=== PATIENT | male | born 1945 | race Caucasian/White ===

== ENCOUNTER → 2016-06-03 | Outpatient (CLI) | payer MEDICARE ==
[2016-06-03 07:58] LABS: Blood Urea Nitrogen 17 mg/dL (9-20); Non-African American GFR(MDRD) >60 (>60 ml/min/1.73 sqM)
--- NOTE | 2016-06-03 09:06 | CT ---
EXAMINATION TYPE: CT chest w con DATE OF EXAM: 06/03/2016 8:56 AM COMPARISON: October 03, 2014 HISTORY: SPN CT DLP: 1048.40 mGycm Automated exposure control for dose reduction was used. CONTRAST: CT scan of the chest is performed with IV Contrast, patient injected with 100 ml mL of Omnipaque 300 . FINDINGS: LUNGS: Stable nodular pleural parenchymal scar right mid lung zone extending to the right lower lobe with mild associated pleural calcification. The lungs are otherwise clear. No evidence for nodule or mass. Mild COPD changes. MEDIASTINUM: Essentially stable low attenuating lesion anterior mediastinum measuring 1.4 cm versus 1 .6 cm previously may reflect a small lymph node or small pericardial cyst. Thoracic aorta is of saurabh l caliber. The heart is mildly enlarged. Mild coronary artery calcifications are seen. UPPER ABDOMEN: No significant abnormality appreciated. OTHER: Small sliding-type hiatal hernia. Degenerative change thoracic spine. IMPRESSION: 1. Stable pleural parenchymal scarring right lung. 2. Mild COPD. 3. 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 4. Small hiatal hernia.
== END | disposition home or self-care (01) ==
LOC: RADCTMAIN 07:17
PROVIDERS: ATTEND Family Medicine
DX: J44.9 Chronic obstructive pulmonary disease, unspecified (principal); J98.4 Other disorders of lung; Z13.9 Encounter for screening, unspecified
CPT/HCPCS: 82565; 84520; 71260; 36415; Q9967

== ENCOUNTER 2016-10-29 06:33 | Day surgery (SDC) | payer MEDICARE ==
[2016-10-23 10:11] VITALS: BMI 59.3
[~2016-10-29 06:33] MED LIST: ALPRAZolam 0.25 MG TAB PO PRN; ALPRAZolam 0.5 MG TAB PO PRN; ASPIRIN 325 MG TAB PO STA; ATORVASTATIN 80 MG TAB PO STA; NITROGLYCERIN SL TABS 0.4 MG TAB SUBLINGUAL PRN; SODIUM CHLORIDE 0.9% 1,000 ML in EMPTY BAG 1 BAG IV ONE
[2016-10-29 07:23] LABS: Basophils % (A) 1 %; CH 31.1; CHCM 34.8; Eosinophils # (A) 0.4 k/uL (0-0.7); Eosinophils % (A) 6 %; HCT 41.8 % (39.0-53.0); HDW 2.67; HGB 13.9 gm/dL (13.0-17.5); Luc # (Auto) 0.14; Luc % (Auto) 3; Lymphocytes # (A) 1.1 k/uL (1.0-4.8); Lymphocytes % (A) 20 %; MCHC 33.3 g/dL (31.0-37.0); MCV 89.9 fL (80.0-100.0); Monocytes # (A) 0.4 k/uL (0-1.0); Monocytes % (A) 7 %; Neutrophils # (A) 3.6 k/uL (1.3-7.7); Neutrophils % (A) 64 %; RBC 4.65 m/uL (4.30-5.90); RDW 13.9 % (11.5-15.5); WBC 5.6 k/uL (3.8-10.6); WBC (Perox) 5.98
[2016-10-29] MEDS ORDERED: fentaNYL (PF) 50 MCG/ML 2 ML AMP ONE (07:24)
[2016-10-29] MEDS ORDERED: diphenhydrAMINE 50 MG/ML 1 ML VIAL ONE (07:24)
[2016-10-29] MEDS ORDERED: LIDOCAINE 2% INJ 20 MG/ML (20 ML MDV) ONE (07:24)
[2016-10-29] MEDS ORDERED: VERAPAMIL 2.5 MG/ML 2 ML AMP ONE (07:25)
[2016-10-29 07:36] LABS: Anion Gap 10 mmol/L; Blood Urea Nitrogen 19 mg/dL (9-20); Calcium 9.3 mg/dL (8.4-10.2); Carbon Dioxide 22 mmol/L (22-30); Chloride 110 mmol/L (98-107); Glucose 99 mg/dL (74-99); Non-African American GFR(MDRD) >60 (>60 ml/min/1.73 sqM); Potassium 4.2 mmol/L (3.5-5.1); Sodium 142 mmol/L (137-145)
[2016-10-29] MEDS ORDERED: diphenhydrAMINE 50 MG/ML 1 ML VIAL IVP ONE (07:41)
[2016-10-29] MEDS ORDERED: fentaNYL (PF) 50 MCG/ML 2 ML AMP IV ONE (07:41)
[2016-10-29] MEDS ORDERED: HEPARIN SODIUM 1,000 UN/ML (10ML VL) ONE (07:42)
[2016-10-29] MEDS ORDERED: LIDOCAINE 2% INJ 20 MG/ML SQ ONE (07:43)
[2016-10-29] MEDS ORDERED: VERAPAMIL SYRINGE (5 MG/10 ML) INTRAARTER ONE (07:45)
[2016-10-29] MEDS ORDERED: HEPARIN SODIUM 1,000 UN/ML (10ML VL) IV ONE (07:57)
[2016-10-29] MEDS ORDERED: IOHEXOL 350 MG/ML 125ML BOTTLE INJ ONE (08:28)
[2016-10-29] MEDS ORDERED: NON-FORMULARY DRUG (Ipratropium/Albuterol Sulfate [Combivent Respimat Inhaler] 2 PUFF) INHALATION PRN (08:46)
[2016-10-29] MEDS ORDERED: traMADol 50 MG TAB PO PRN (08:46)
[2016-10-29] MEDS ORDERED: RX INFO: IV CONTRAST WAS GIVEN 1 EACH MISC MISCELLANE PRN (08:46)
[2016-10-29] MEDS ORDERED: SODIUM CHLORIDE 0.9% 1,000 ML IV SCH (09:00)
[2016-10-29] MEDS ORDERED: SALMETEROL IH SCH (09:00)
[2016-10-29] MEDS ORDERED: ASPIRIN 81 MG PO SCH (09:00)
[2016-10-29] MEDS ORDERED: OLMESARTAN 40 MG PO SCH (09:00)
[2016-10-29] MEDS ORDERED: FLUTICASONE IH SCH (09:00)
[2016-10-29] MEDS ORDERED: FINASTERIDE 5 MG TAB PO SCH (09:00)
[2016-10-29] MEDS ORDERED: ATORVASTATIN 40 MG TAB PO SCH (09:00)
[2016-10-29] MEDS ORDERED: TAMSULOSIN 0.4 MG CAP.ER.24H PO SCH (09:00)
[2016-10-29 09:01] VITALS: TEMP 98.2
[2016-10-29 10:46] VITALS: RESP 16
--- NOTE | 2016-10-29 12:12 | CC ---
CARDIAC CATHETERIZATION REPORT Mr. Salmeron is a 71-year-old male with a known history of hypertension who has been complaining of dyspnea on exertion; underwent a myocardial perfusion imaging that revealed inferior wall defect with ejection fraction of 48%. In view of that, recommendation regarding cardiac catheterization, the procedure as well as the risks, and complications were discussed with the patient in full understanding and agreement. The patient was brought to the dental laboratory manager in a fasting state after receiving fentanyl and Benadryl and achieving moderate conscious sedative state. He was draped and prepped in conventional fashion. Using Xylocaine anesthesia in the Seldinger technique, 6-Scottish sheath was introduced in the right radial artery. Attempt to cannulate the right coronary artery using a 5-Scottish 3-1/2 bend and left coronary artery using 5-Scottish 3- 1/2 Bend Alfonzo catheter were unsuccessful because severe tortuosity in the subclavian segment. At that time, a 5-Scottish 4 bend right Alfonzo catheter introduced in the system and images of the coronary artery were performed. Following that, the 6-Scottish Browning 2 catheter was introduced and images of the left coronary system were obtained with difficulties. The aortic valve was crossed using the right Alfonzo catheter and pressures were calculated. Following that catheter and sheaths were removed. Hemostasis was obtained with deployment of a TR band. There was no immediate complication. Patient was returned to his room in stable condition. Of note, the patient received 5000 units of intravenous heparin as well as intra-arterial verapamil. FINDINGS: FLUOROSCOPY: There was calcification formed in the right coronary artery, left main and the proximal left anterior descending artery. LEFT MAIN: This is a short size vessel, bifurcating into the left circumflex and left anterior descending artery. Left main coronary artery is without any significant coronary artery disease. LEFT ANTERIOR DESCENDING ARTERY: This is a large-sized vessel reaching toward the apex giving rise to a large diagonal branch calcified in the proximal segment. The left anterior descending artery in the proximal and mid segment has intimal disease of 20% to 30% without any evidence of high-grade stenosis. LEFT CIRCUMFLEX: This is a large nondominant vessel giving rise to 4 obtuse marginal branches. The first 3 are the largest in caliber. The left circumflex in the proximal segment has 20% to 30% without any evidence of high-grade stenosis. RIGHT CORONARY ARTERY: This is a large dominant vessel, bifurcating distally PDA, posterolateral segment and branches. The right coronary artery is calcified. In the mid and proximal segment, it has 2 plaques of 40% to 50% without any evidence of high- grade stenosis. The rest of the vessel has no high-degree stenosis. LEFT VENTRICULOGRAM: Left ventriculogram is not performed. HEMODYNAMICS: There was no gradient across the aortic valve. The left ventricle end- diastolic pressure was 16 to 18 mmHg. CONCLUSION: 1. Calcified coronary arteries. 2. Mild to moderate triple-vessel coronary artery disease. RECOMMENDATION: In view of finding anatomy, I recommend to continue medical therapy with aggressive coronary risk modifications that has been initiated. Those findings and recommendation were discussed with the patient and his family and in full understanding and agreement. Duration of the procedure 50 minutes. MMODL / IJN: [id number] /
--- NOTE | 2016-10-29 12:18 | LTR ---
Date: October 29, 2016 Jigar Gilman, DO Re: Manny Salmeron Dear Dr. Gilman: I had the opportunity to perform cardiac catheterization on Mr. Salmeron at [facility] on the 29 of October and a full copy of the procedure note will be forwarded to you. In brief, he was found to have calcified coronary artery with mild to moderate triple-vessel coronary artery disease and based on those findings, I recommend continued medical therapy with aggressive coronary risk modifications that has been initiated. Thank you again for allowing me the opportunity to participate in his care. Please feel free to call for any questions. Sincerely yours, MD LIANNA Francis / BRIGITTEN: [id number] /
[2016-10-29 13:31] VITALS: BP 147/76; PULSE 79
== END 2016-10-29 14:08 | disposition home or self-care (01) ==
LOC: CATHCVL 06:33
PROVIDERS: ATTEND Internal Medicine Interventional Cardiology
DX: I25.10 Atherosclerotic heart disease of native coronary artery without angina pectoris (principal); I10 Essential (primary) hypertension; G47.33 Obstructive sleep apnea (adult) (pediatric); E66.9 Obesity, unspecified; Z86.711 Personal history of pulmonary embolism; Z68.43 Body mass index [BMI] 50.0-59.9, adult; Z79.82 Long term (current) use of aspirin; Z79.01 Long term (current) use of anticoagulants; Z79.899 Other long term (current) drug therapy
CPT/HCPCS: 93458; 80048; 85025; 99152; 99153; C1894 ×2; C1769 ×2; J2001; J1200; J3010; J1644; Q9967

== ENCOUNTER → 2019-04-28 | Day surgery (SDC) | payer MEDICARE ==
[2019-04-25 13:23] VITALS: BMI 41.2
[~2019-04-28] MED LIST changes: -ALPRAZolam 0.25 MG TAB PO PRN; -ALPRAZolam 0.5 MG TAB PO PRN; -ASPIRIN 325 MG TAB PO STA; -ATORVASTATIN 80 MG TAB PO STA; +LACTATED RINGERS 1,000 ML IV SCH; +LIDOCAINE 1% (10MG/ML) FOR IV START INTRADERMA PRN; -NITROGLYCERIN SL TABS 0.4 MG TAB SUBLINGUAL PRN; +PROPOFOL 10 MG/ML 20 ML VIAL IV ONE; -SODIUM CHLORIDE 0.9% 1,000 ML in EMPTY BAG 1 BAG IV ONE
[2019-04-28 08:09] VITALS: TEMP 97
--- NOTE | 2019-04-28 10:12 | P.GSHP ---
History of Present Illness H&P Date: 04/28/19 CHIEF COMPLAINT: Colon screen HISTORY OF PRESENT ILLNESS: The patient is a 73-year-old male who presents for colon screen. Lower endoscopy was offered for further evaluation and management. PAST MEDICAL HISTORY: Please see list. PAST SURGICAL HISTORY: Please see list. MEDICATIONS: Please see list. ALLERGIES: Please see list. SOCIAL HISTORY: No illicit drug use FAMILY HISTORY: No reports of Crohn disease or ulcerative colitis. REVIEW OF ORGAN SYSTEMS: CONSTITUTIONAL: No reports of fevers or chills. PHYSICAL EXAM: VITAL SIGNS: Stable GENERAL: Well-developed pleasant in no acute distress. HEENT: No scleral icterus. Extraocular movements grossly intact. Moist buccal mucosa. NECK: Supple without lymphadenopathy. CHEST: Unlabored respirations. Equal bilateral excursions. CARDIOVASCULAR: Regular rate and rhythm. Distal 2+ pulses. ABDOMEN: Soft, nontender, nondistended. MUSCULOSKELETAL: No clubbing, cyanosis, or edema. ASSESSMENT: 1. Colon screen. PLAN: 1. Recommend proceeding with a lower endoscopy Past Medical History Past Medical History: COPD, GERD/Reflux, Hearing Disorder / Deafness, Hypertension, Osteoarthritis (OA), Pneumonia, Pulmonary Embolus (PE) Additional Past Medical History / Comment(s): UTI, POLYPS History of Any Multi-Drug Resistant Organisms: None Reported Past Surgical History: Appendectomy, Cholecystectomy Additional Past Surgical History / Comment(s): COLONOSCOPY W/POLYPECTOMY-BENIGN POLYPS,BONE TAKEN FROM RT HIP AND INSERTED INTO RT ANKLE Past Anesthesia/Blood Transfusion Reactions: No Reported Reaction Additional Past Anesthesia/Blood Transfusion Reaction / Comment(s): had ruptured appendix in 70's-"almost lost him" per spouse, unsure if due to anesthesia or the ruptured appy. Past Psychological History: No Psychological Hx Reported Additional Psychological History / Comment(s): . Smoking Status: Former smoker Past Alcohol Use History: Occasional Additional Past Alcohol Use History / Comment(s): SMOKED FOR 25 YEARS- UP TO 2 PPD, QUIT IN 1987. Past Drug Use History: None Reported - Past Family History Son(s) Family Medical History: Deep Vein Thrombosis (DVT) Father Family Medical History: Cancer, Dementia Additional Family Medical History / Comment(s): HAD COLON CANCER AND WAS TX SUCCESSFULLY THEN GOT LUNG CANCER/ Mother Family Medical History: Hypertension, Rheumatoid Arthritis (RA) Additional Family Medical History / Comment(s): STILL ALIVE LIVES AT [facility] Medications and Allergies Home Medications Medication Instructions Recorded Confirmed Type Finasteride [Proscar] 5 mg PO DAILY 10/03/14 04/25/19 History Tamsulosin [Flomax] 0.4 mg PO DAILY 10/03/14 04/25/19 History traMADol HCL [Ultram] 50 mg PO Q6H PRN 10/03/14 04/25/19 History Aspirin [Adult Low Dose Aspirin EC] 81 mg PO DAILY 10/23/16 04/25/19 History Atorvastatin [Lipitor] 40 mg PO DAILY #90 tab 10/29/16 04/25/19 Rx Mometasone/Formoterol [Dulera 200 2 puff INHALATION BID 04/25/19 04/25/19 History Mcg/5 Mcg Inhaler] Olmesartan/Hydrochlorothiazide 1 each PO DAILY 04/25/19 04/25/19 History [Benicar Hct 40-25 mg Tablet] Allergies Allergy/AdvReac Type Severity Reaction Status Date / Time No Known Allergies Allergy Verified 04/25/19 13:08 Surgical - Exam Vital Signs Temp Pulse Resp BP Pulse Ox 97 F L 85 20 127/72 94 L 04/28/19 08:00 04/28/19 08:00 04/28/19 08:00 04/28/19 08:00 04/28/19 08:00
[2019-04-28 10:36] VITALS: BP 121/63; PULSE 66; RESP 18
--- NOTE | 2019-04-28 15:52 | P.PCN ---
Date of Procedure: 04/28/19 Description of Procedure: PREOPERATIVE DIAGNOSIS: Family history of colon cancer, father Personal history of colon polyps Colon cancer screening, high risk POSTOPERATIVE DIAGNOSIS: Family history of colon cancer, father Personal history of colon polyps Colon cancer screening, high risk Tubular adenoma descending colon Tubular adenoma transverse colon Sigmoid diverticulosis Internal hemorrhoids, grade 2 OPERATION: Colonoscopy to the ileocecal valve and appendiceal orifice. Colonoscopy with multiple hot snare polypectomies Colonoscopy with cold forceps biopsies SURGEON: So Pastor MD. ANESTHESIA: MAC. INDICATIONS: The patient is an 73-year-old male who presents with personal history of colon polyps. Last colonoscopy 5 years ago. Benefits and risks were described and informed consent was obtained. DESCRIPTION OF PROCEDURE: The patient had undergone Suprep. He had been brought into the operating room and laid in the left lateral decubitus position. After adequate intravenous sedation, the rectum was examined with 2% lidocaine jelly. The prostate fossa was unremarkable. No external hemorrhoids were encountered. The rectal tone was within normal limits. No lesions were palpated in the rectal vault. An Olympus colonoscope was advanced to the ileocecal valve with clear view. The prep was good. Sigmoid diverticulosis was encountered. Multiple colonic polyps were found and snare polypectomy or removed with cold forceps. No evidence of focal colitis was found. Retroflexion of the scope demonstrated grade 2 internal hemorrhoids without active bleeding or inflammation. The colon was desufflated. The patient had tolerated the procedure well. Withdrawal time was over 6 minutes. FINDINGS: Aronchick preparation quality scale 2 (1-5) Internal hemorrhoids, grade 2 No external hemorrhoids No arteriovenous malformations. Sigmoid diverticulosis, moderate to severe Removal of 16 polyps: - Snare polypectomy 30 cm from the anal verge, 10 mm flat villous adenoma polyp, descending colon - Snare polypectomy 60 cm from the anal verge, 8 mm flat villous adenoma polyp, descending colon - Cold forceps biopsy at 60 cm from the anal verge descending colon 3, 3 to 5 mm polyp - Cold forceps biopsy at 55 cm from the anal verge, 4 mm polyp, descending colon - Cold forceps biopsy at distal transverse colon 3, 4 to 5 mm polyp - Cold forceps biopsy at mid transverse colon, 4 mm polyp - Cold forceps biopsy at proximal transverse colon polyp x 2, 4 to 5 mm polyp - Cold forceps biopsy at hepatic flexure 5 mm polyp - Cold forceps biopsy at ascending colon x 3, 3 to 4 mm polyp polyps. No focal colitis. RECOMMENDATIONS: Given severity of tubular adenomas, recommend repeat colonoscopy year2020 Plan - Discharge Summary Discharge Rx Participant: No New Discharge Prescriptions: Continue Tamsulosin [Flomax] 0.4 mg PO DAILY Finasteride [Proscar] 5 mg PO DAILY traMADol HCL [Ultram] 50 mg PO Q6H PRN PRN Reason: Pain Aspirin [Adult Low Dose Aspirin EC] 81 mg PO DAILY Atorvastatin [Lipitor] 40 mg PO DAILY #90 tab Olmesartan/Hydrochlorothiazide [Benicar Hct 40-25 mg Tablet] 1 each PO DAILY Mometasone/Formoterol [Dulera 200 Mcg/5 Mcg Inhaler] 2 puff INHALATION BID Discharge Medication List Finasteride [Proscar] 5 mg PO DAILY 10/03/14 [History] Tamsulosin [Flomax] 0.4 mg PO DAILY 10/03/14 [History] traMADol HCL [Ultram] 50 mg PO Q6H PRN 10/03/14 [History] Aspirin [Adult Low Dose Aspirin EC] 81 mg PO DAILY 10/23/16 [History] Atorvastatin [Lipitor] 40 mg PO DAILY #90 tab 10/29/16 [Rx] Mometasone/Formoterol [Dulera 200 Mcg/5 Mcg Inhaler] 2 puff INHALATION BID 04/25/19 [History] Olmesartan/Hydrochlorothiazide [Benicar Hct 40-25 mg Tablet] 1 each PO DAILY 04/25/19 [History] Follow up Appointment(s)/Referral(s): So Pastor MD [STAFF PHYSICIAN] - 05/12/19 9:40 am Patient Instructions/Handouts: *Surgery [facility] - (Anesthesia) Endoscopy Discharge Instructions, Diverticulosis (DC), Colorectal Polyps (DC), Diverticulosis Diet (GEN), Colonoscopy (DC) Activity/Diet/Wound Care/Special Instructions: Repeat colonoscopy one year2020 Discharge Disposition: HOME SELF-CARE
== END | disposition home or self-care (01) ==
LOC: ORWHC2ENDO 07:41
PROVIDERS: ATTEND Surgery Plastic and Reconstructive Surgery
DX: Z12.11 Encounter for screening for malignant neoplasm of colon (principal); D12.6 Benign neoplasm of colon, unspecified; D12.2 Benign neoplasm of ascending colon; D12.3 Benign neoplasm of transverse colon; K63.5 Polyp of colon; K57.30 Diverticulosis of large intestine without perforation or abscess without bleeding; K64.1 Second degree hemorrhoids; Z86.010 Personal history of colon polyps; Z80.0 Family history of malignant neoplasm of digestive organs; J44.9 Chronic obstructive pulmonary disease, unspecified; K21.9 Gastro-esophageal reflux disease without esophagitis; H91.90 Unspecified hearing loss, unspecified ear; I10 Essential (primary) hypertension; M19.90 Unspecified osteoarthritis, unspecified site; E78.5 Hyperlipidemia, unspecified; Z87.01 Personal history of pneumonia (recurrent); Z86.711 Personal history of pulmonary embolism; Z87.440 Personal history of urinary (tract) infections; Z90.49 Acquired absence of other specified parts of digestive tract; Z98.890 Other specified postprocedural states; Z87.891 Personal history of nicotine dependence; Z79.899 Other long term (current) drug therapy; Z79.891 Long term (current) use of opiate analgesic; Z79.82 Long term (current) use of aspirin; Z79.51 Long term (current) use of inhaled steroids; Z82.49 Family history of ischemic heart disease and other diseases of the circulatory system; Z80.1 Family history of malignant neoplasm of trachea, bronchus and lung; Z81.8 Family history of other mental and behavioral disorders; Z82.61 Family history of arthritis
CPT/HCPCS: 88305; 45380; 45385; J2704

== ENCOUNTER 2020-06-13 09:02 | Day surgery (SDC) | payer MEDICARE ==
[2020-06-12 09:37] VITALS: BMI 38.0
--- NOTE | 2020-06-13 07:41 | P.GSHP ---
History of Present Illness H&P Date: 06/13/20 CHIEF COMPLAINT: Colon screen HISTORY OF PRESENT ILLNESS: The patient is a 75-year-old male who presents for colon screen. Lower endoscopy was offered for further evaluation and management. PAST MEDICAL HISTORY: Please see list. PAST SURGICAL HISTORY: Please see list. MEDICATIONS: Please see list. ALLERGIES: Please see list. SOCIAL HISTORY: No illicit drug use FAMILY HISTORY: No reports of Crohn disease or ulcerative colitis. REVIEW OF ORGAN SYSTEMS: CONSTITUTIONAL: No reports of fevers or chills. PHYSICAL EXAM: VITAL SIGNS: Stable GENERAL: Well-developed pleasant in no acute distress. HEENT: No scleral icterus. Extraocular movements grossly intact. Moist buccal mucosa. NECK: Supple without lymphadenopathy. CHEST: Unlabored respirations. Equal bilateral excursions. CARDIOVASCULAR: Regular rate and rhythm. Distal 2+ pulses. ABDOMEN: Soft, nontender, nondistended. MUSCULOSKELETAL: No clubbing, cyanosis, or edema. ASSESSMENT: 1. Colon screen. PLAN: 1. Recommend proceeding with a lower endoscopy Past Medical History Past Medical History: COPD, GERD/Reflux, Hearing Disorder / Deafness, Hyperlipidemia, Hypertension, Osteoarthritis (OA), Pneumonia, Pulmonary Embolus (PE) Additional Past Medical History / Comment(s): UTI, POLYPS. History of Any Multi-Drug Resistant Organisms: None Reported Past Surgical History: Appendectomy, Cholecystectomy, Orthopedic Surgery Additional Past Surgical History / Comment(s): COLONOSCOPY W/POLYPECTOMY-BENIGN POLYPS,BONE TAKEN FROM RT HIP AND INSERTED INTO RT ANKLE Past Anesthesia/Blood Transfusion Reactions: No Reported Reaction Additional Past Anesthesia/Blood Transfusion Reaction / Comment(s): had ruptured appendix in 70's-"almost lost him" per spouse, unsure if due to anesthesia or the ruptured appy. Smoking Status: Former smoker - Past Family History Son(s) Family Medical History: Deep Vein Thrombosis (DVT) Father Family Medical History: Cancer, Dementia Additional Family Medical History / Comment(s): HAD COLON CANCER AND WAS TX SUCCESSFULLY THEN GOT LUNG CANCER/ Mother Family Medical History: Hypertension, Rheumatoid Arthritis (RA) Additional Family Medical History / Comment(s): STILL ALIVE LIVES AT [facility] Medications and Allergies Home Medications Medication Instructions Recorded Confirmed Type Finasteride [Proscar] 5 mg PO DAILY 10/03/14 06/12/20 History Tamsulosin [Flomax] 0.4 mg PO DAILY 10/03/14 06/12/20 History traMADol HCL [Ultram] 50 mg PO Q6H PRN 10/03/14 06/12/20 History Aspirin [Adult Low Dose Aspirin EC] 81 mg PO DAILY 10/23/16 06/12/20 History Atorvastatin [Lipitor] 40 mg PO DAILY #90 tab 10/29/16 06/12/20 Rx Mometasone/Formoterol [Dulera 200 2 puff INHALATION BID 04/25/19 06/12/20 History Mcg-5 Mcg Inhaler] Olmesartan/Hydrochlorothiazide 1 each PO DAILY 04/25/19 06/12/20 History [Benicar Hct 40-25 mg Tablet] Allergies Allergy/AdvReac Type Severity Reaction Status Date / Time No Known Allergies Allergy Verified 06/12/20 09:46
[~2020-06-13 09:02] MED LIST changes: -PROPOFOL 10 MG/ML 20 ML VIAL IV ONE
[2020-06-13] MEDS ORDERED: LACTATED RINGERS 1,000 ML IV ONE (09:25)
[2020-06-13 09:27] VITALS: TEMP 97.6
[2020-06-13] MEDS ORDERED: PROPOFOL 10 MG/ML 20 ML VIAL IV ONE (10:52)
--- NOTE | 2020-06-13 11:31 | P.PCN ---
Date of Procedure: 06/13/20 Description of Procedure: PREOPERATIVE DIAGNOSIS: Personal history of colon polyps Colonoscopy screening POSTOPERATIVE DIAGNOSIS: Tubular adenoma hepatic flexure Tubular adenoma transverse colon Tubular adenoma descending colon Sigmoid diverticulosis OPERATION: Colonoscopy to the ileocecal valve and appendiceal orifice, cecum Colonoscopy with hot snare polypectomy Colonoscopy with cold forceps biopsy SURGEON: So Pastor MD. ANESTHESIA: MAC. INDICATIONS: The patient is an 75-year-old male who presents personal history of colon polyps. Last colonoscopy 5 years over. Benefits and risks were described and informed consent was obtained. DESCRIPTION OF PROCEDURE: The patient had undergone Suprep. The patient had been brought into the operating room and laid in the left lateral decubitus position. After adequate intravenous sedation, the rectum was examined with 2% lidocaine jelly. The prostate was unremarkable. No external hemorrhoids were encountered. The rectal tone was within normal limits. No lesions were palpated in the rectal vault. An Olympus colonoscope was advanced until the cecum, ileocecal valve and appendiceal orifice were clearly viewed. The prep was fair. Severe sigmoid diverticulosis was encountered. Colonic polyps were found and removed. No evidence of focal colitis was found. Retroflexion of the scope demonstrated grade 1 internal hemorrhoids without active bleeding or inflammation. The colon was desufflated. The patient had tolerated the procedure well. Withdrawal time was over 6 minutes. FINDINGS: Aronchick preparation quality scale 2 (1-5) Internal hemorrhoids, grade 1 No external hemorrhoids Has arteriovenous malformation at hepatic flexure Sigmoid diverticulosis Removal of 4 polyps: - Snare polypectomy of hepatic flexure, 5 mm tubulovillous adenoma polyp. - Snare polypectomy of mid transverse colon, 8 mm flat villous adenoma polyp. - Snare polypectomy of descending colon, 6 mm flat villous adenoma polyp. - Cold forceps biopsy at descending colon, 4 mm polyp. No focal colitis. RECOMMENDATIONS: Repeat colonoscopy in 3 years, 2023 Plan - Discharge Summary Discharge Rx Participant: Yes New Discharge Prescriptions: Continue Tamsulosin [Flomax] 0.4 mg PO DAILY Finasteride [Proscar] 5 mg PO DAILY traMADol HCL [Ultram] 50 mg PO Q6H PRN PRN Reason: Pain Aspirin [Adult Low Dose Aspirin EC] 81 mg PO DAILY Atorvastatin [Lipitor] 40 mg PO DAILY #90 tab Olmesartan/Hydrochlorothiazide [Benicar Hct 40-25 mg Tablet] 1 each PO DAILY Mometasone/Formoterol [Dulera 200 Mcg-5 Mcg Inhaler] 2 puff INHALATION BID Discharge Medication List Finasteride [Proscar] 5 mg PO DAILY 10/03/14 [History] Tamsulosin [Flomax] 0.4 mg PO DAILY 10/03/14 [History] traMADol HCL [Ultram] 50 mg PO Q6H PRN 10/03/14 [History] Aspirin [Adult Low Dose Aspirin EC] 81 mg PO DAILY 10/23/16 [History] Atorvastatin [Lipitor] 40 mg PO DAILY #90 tab 10/29/16 [Rx] Mometasone/Formoterol [Dulera 200 Mcg-5 Mcg Inhaler] 2 puff INHALATION BID 04/25/19 [History] Olmesartan/Hydrochlorothiazide [Benicar Hct 40-25 mg Tablet] 1 each PO DAILY 04/25/19 [History] Follow up Appointment(s)/Referral(s): So Pastor MD [STAFF PHYSICIAN] - As Needed Patient Instructions/Handouts: Colorectal Polyps (DC), Diverticulosis Diet (GEN), Diverticulosis (DC) Activity/Diet/Wound Care/Special Instructions: Repeat colonoscopy 3 years, 2023 Discharge Disposition: HOME SELF-CARE
[2020-06-13 11:37] VITALS: RESP 16
[2020-06-13 11:43] VITALS: BP 117/82; PULSE 64
== END 2020-06-13 11:56 | disposition home or self-care (01) ==
LOC: ORWHC2ENDO 09:02
PROVIDERS: ATTEND Surgery Plastic and Reconstructive Surgery
DX: Z12.11 Encounter for screening for malignant neoplasm of colon (principal); K57.30 Diverticulosis of large intestine without perforation or abscess without bleeding; D12.3 Benign neoplasm of transverse colon; D12.4 Benign neoplasm of descending colon; K64.0 First degree hemorrhoids; J44.9 Chronic obstructive pulmonary disease, unspecified; K21.9 Gastro-esophageal reflux disease without esophagitis; E78.5 Hyperlipidemia, unspecified; I10 Essential (primary) hypertension; M19.90 Unspecified osteoarthritis, unspecified site; H91.90 Unspecified hearing loss, unspecified ear; Z86.010 Personal history of colon polyps; Z79.82 Long term (current) use of aspirin; Z79.899 Other long term (current) drug therapy; Z86.711 Personal history of pulmonary embolism; Z87.01 Personal history of pneumonia (recurrent); Z80.1 Family history of malignant neoplasm of trachea, bronchus and lung; Z80.0 Family history of malignant neoplasm of digestive organs; Z84.89 Family history of other specified conditions; Z82.49 Family history of ischemic heart disease and other diseases of the circulatory system; Z82.61 Family history of arthritis
CPT/HCPCS: 88305; 45380; 45385; J2704

== ENCOUNTER → 2020-06-27 | Outpatient (CLI) | payer MEDICARE ==
[2020-06-27 13:50] VITALS: BP 136/82; PULSE 101; RESP 16; TEMP 98.2; BMI 39.9
--- NOTE | 2020-06-27 14:15 | P.HPBAR ---
Bariatric H&P - History & Physicial H&P Date: 06/27/20 History & Physicial: Visit/CC: New to [facility]. Pt lost wt on his own. Might pursue panni. Patient initial contact: Initial weight: 206.385 kg Initial weight in pounds: 455.00 Height: 5 ft 11 in Initial BMI: 63.4 Last weight: Current weight: 129.784 kg Current weight in pounds: 286.13 Current BMI: 39.9 [place] body weight (based on NIH guidelines): 78.018 kg Excess body weight loss: 59.6% The patient is a 75 year-old M who presents for Bariatric Assessment. Highest weight 425 pounds. Lost 100 pounds. He lost weight from November 2017, for over 2 years. He has been using AD ointment for his skin infections, over 5+ years. He reports lower back pain and with chiropractor for his back. He has difficulty with grooming and wearing clothes. He is into [id number] expense. Went over recovery option. Panniculectomy packet. At least 20 pounds described. Recommend follow with heat treating bluer for panniculitis. Needs EKG and cardiac clearance. Recommend bariatric labs for nutrition. Has over 8 cm of hanging. Get pictures. He avoids carbs and eats 12 oz of steak per day. Past Medical History Past Medical History: COPD, GERD/Reflux, Hearing Disorder / Deafness, Hyperlipidemia, Hypertension, Osteoarthritis (OA), Pneumonia, Pulmonary Embolus (PE) Additional Past Medical History / Comment(s): UTI, POLYPS. History of Any Multi-Drug Resistant Organisms: None Reported Past Surgical History: Appendectomy, Cholecystectomy, Orthopedic Surgery Additional Past Surgical History / Comment(s): COLONOSCOPY W/POLYPECTOMY-BENIGN POLYPS,BONE TAKEN FROM RT HIP AND INSERTED INTO RT ANKLE Past Anesthesia/Blood Transfusion Reactions: No Reported Reaction Additional Past Anesthesia/Blood Transfusion Reaction / Comm: had ruptured appendix in 70's-"almost lost him" per spouse, unsure if due to anesthesia or the ruptured appy. Past Psychological History: No Psychological Hx Reported Additional Psychological History / Comment(s): . Smoking Status: Former smoker Past Alcohol Use History: Occasional Additional Past Alcohol Use History / Comment(s): SMOKED FOR 25 YEARS- UP TO 2 PPD, QUIT IN 1987. Past Drug Use History: None Reported - Past Family History Son(s) Family Medical History: Deep Vein Thrombosis (DVT) Father Family Medical History: Cancer, Dementia Additional Family Medical History / Comment(s): HAD COLON CANCER AND WAS TX SUCCESSFULLY THEN GOT LUNG CANCER/ Mother Family Medical History: Hypertension, Rheumatoid Arthritis (RA) Additional Family Medical History / Comment(s): STILL ALIVE LIVES [facility] Surgical - Exam Vital Signs Temp Pulse Resp BP 98.2 F 101 H 16 136/82 06/27/20 13:46 06/27/20 13:46 06/27/20 13:46 06/27/20 13:46 Bariatric Checklist Checklist: Plan: Checklist: EGD: 1. Hiatal hernia: 2. H. Pylori: HgbA1c: Vitamin D: Smoking: Former smoker Primary care physician referral: Psychiatry clearance: Cardiology clearance: Sleep study: Diet journal: VTE risk score: VTE risk level: Rehab needs at discharge:
[2020-06-27 15:30] LABS: HCT 35.8 % (39.0-53.0); HGB 12.7 gm/dL (13.0-17.5); MCH 32.1 pg (25.0-35.0); MCHC 35.5 g/dL (31.0-37.0); MCV 90.5 fL (80.0-100.0); Mean Platelet Volume 8.4; Platelet Count 215 k/uL (150-450); RBC 3.96 m/uL (4.30-5.90); WBC 8.4 k/uL (3.8-10.6)
[2020-06-27 15:42] LABS: Partial Thromboplastin Time 23.1 sec (22.0-30.0); Prothrombin Time 10.3 sec (9.0-12.0)
[2020-06-27 22:44] LABS: % Iron Saturation 22.86 (15.00-50.00); African American GFR (CKD) 68.1 (60.0-200.0); Albumin 4.2 g/dL (3.80-4.90); Albumin/Globulin Ratio 2.21 (1.60-3.17); Anion Gap 7.5 mmol/L (4.00-12.00); Calcium 9.3 mg/dL (8.7-10.3); Carbon Dioxide 27.5 mmol/L (21.6-31.8); Chol/HDL Ratio 2.23; Globulin 1.9 g/dL (1.6-3.3); LDL Cholesterol,Calculated 49.2 mg/dL (0.0-131.0); Magnesium 2.1 mg/dL (1.5-2.4); Non-African American GFR(CKD) 58.8 (60.0-200.0); Phosphorus 3.6 mg/dL (2.4-5.1); Potassium 3.7 mmol/L (3.5-5.5); Total Bilirubin 0.5 mg/dL (0.3-1.2); Total Protein 6.1 g/dL (6.2-8.2); VLDL Calculation 24.8 mg/dL (5.00-40.00)
[2020-06-27 22:54] LABS: Hemoglobin A1C 4.6 % (4.0-6.0)
[2020-06-27 23:24] LABS: Ferritin 486.5 ng/mL (22.0-322.0); Folate, Serum 12.8 ng/mL
[2020-06-28 14:09] LABS: Zinc, Serum 65 ug/dL (60-130)
[2020-06-29 09:36] LABS: Vitamin A 54 ug/dL (38-106)
[2020-06-29 14:03] LABS: Vit B1(Thiamine) 59 ug/L (38-122)
[2020-07-01 19:02] LABS: Selenium 143 mcg/L (63-160)
== END ==
LOC: BARWHC3 12:53
PROVIDERS: ATTEND Surgery Plastic and Reconstructive Surgery
DX: E66.01 Morbid (severe) obesity due to excess calories (principal); E89.1 Postprocedural hypoinsulinemia; D50.8 Other iron deficiency anemias; E44.0 Moderate protein-calorie malnutrition; E55.9 Vitamin D deficiency, unspecified; K74.1 Hepatic sclerosis; N19 Unspecified kidney failure; K50.90 Crohn's disease, unspecified, without complications; Z68.39 Body mass index [BMI] 39.0-39.9, adult; Z87.891 Personal history of nicotine dependence
CPT/HCPCS: 84255; 84134; 84425; 80061; 80053; 82607; 82728; 82525; 82746; 83540; 83550; 83735; 84100; 84443; 84590; 84630; 85027; 85610; 85730; 82306; 83970; 83036; 93005; 36415; G0463; 99203

== ENCOUNTER → 2020-09-13 | Outpatient (CLI) | payer MEDICARE ==
[2020-09-13 15:21] LABS: HCT 36.6 % (39.6-50.0); HGB 12.2 g/dL (13.0-17.0); MCH 30.3 pg (27.0-32.0); MCHC 33.3 g/dL (32.0-37.0); Mean Platelet Volume 11.5 fL (9.5-12.2); Platelet Count 219 X 10*3/uL (140-440); RBC 4.02 X 10*6/uL (4.40-5.60); RDW 12.9 % (11.5-14.5); WBC 7.03 X 10*3/uL (4.50-10.00)
== END | disposition home or self-care (01) ==
LOC: LABWHC1 10:43
PROVIDERS: ATTEND Orthopaedic Surgery
DX: M25.50 Pain in unspecified joint (principal)
CPT/HCPCS: 36415; 85027

== ENCOUNTER → 2020-11-07 | Outpatient (CLI) | payer MEDICARE ==
[2020-11-07 18:53] LABS: HCT 32.2 % (39.6-50.0); HGB 10.3 g/dL (13.0-17.0); MCH 29.5 pg (27.0-32.0); MCV 92.3 fL (80.0-97.0); Mean Platelet Volume 11.2 fL (9.5-12.2); Platelet Count 197 X 10*3/uL (140-440); RBC 3.49 X 10*6/uL (4.40-5.60); RDW 12.9 % (11.5-14.5); WBC 5.87 X 10*3/uL (4.50-10.00)
== END | disposition home or self-care (01) ==
LOC: LABWHC1 11:42
PROVIDERS: ATTEND Orthopaedic Surgery
DX: M25.50 Pain in unspecified joint (principal)
CPT/HCPCS: 36415; 85027

== ENCOUNTER 2020-12-03 08:26 | Day surgery (SDC) | payer MEDICARE ==
[2020-11-30 08:40] VITALS: BMI 38.3
--- NOTE | 2020-12-03 08:41 | P.GSHP ---
History of Present Illness H&P Date: 12/03/20 CHIEF COMPLAINT: Anemia HISTORY OF PRESENT ILLNESS: The patient is a 75-year-old male who presents with anemia and Hemoccult positive for gastrointestinal bleeding. Upper and lower endoscopy were offered for further evaluation and management. PAST MEDICAL HISTORY: Please see list. PAST SURGICAL HISTORY: Please see list. MEDICATIONS: Please see list. ALLERGIES: Please see list. SOCIAL HISTORY: No illicit drug use FAMILY HISTORY: No reports of Crohn disease or ulcerative colitis. REVIEW OF ORGAN SYSTEMS: CONSTITUTIONAL: No reports of fevers or chills. GI: Denies any blood in stools or constipation. PHYSICAL EXAM: VITAL SIGNS: Stable GENERAL: Well-developed pleasant in no acute distress. HEENT: No scleral icterus. Extraocular movements grossly intact. Moist buccal mucosa. NECK: Supple without lymphadenopathy. CHEST: Unlabored respirations. Equal bilateral excursions. CARDIOVASCULAR: Regular rate and rhythm. Distal 2+ pulses. ABDOMEN: Soft, nondistended. MUSCULOSKELETAL: No clubbing, cyanosis, or edema. ASSESSMENT: 1. Anemia 2. Hemoccult positive for gastrointestinal bleeding PLAN: 1. Recommend proceeding with an upper and lower endoscopy Past Medical History Past Medical History: COPD, Deep Vein Thrombosis (DVT), Hearing Disorder / Deafness, Hyperlipidemia, Hypertension, Osteoarthritis (OA), Pneumonia, Pulmonary Embolus (PE) Additional Past Medical History / Comment(s): hx POLYPS. anemia, History of Any Multi-Drug Resistant Organisms: None Reported Past Surgical History: Appendectomy, Cholecystectomy, Orthopedic Surgery Additional Past Surgical History / Comment(s): COLONOSCOPY W/POLYPECTOMY,BONE TAKEN FROM RT HIP AND INSERTED INTO RT ANKLE Past Anesthesia/Blood Transfusion Reactions: No Reported Reaction Additional Past Anesthesia/Blood Transfusion Reaction / Comment(s): had ruptured appendix in 70's-"almost lost him" per spouse, unsure if due to anesthesia or the ruptured appy. Smoking Status: Former smoker - Past Family History Son(s) Family Medical History: Deep Vein Thrombosis (DVT) Brother(s) Family Medical History: Cancer Daughter(s) Family Medical History: Cancer Father Family Medical History: Cancer Additional Family Medical History / Comment(s): HAD COLON CANCER Mother Family Medical History: Hypertension, Rheumatoid Arthritis (RA) Additional Family Medical History / Comment(s): STILL ALIVE LIV[facility] AT [facility] Medications and Allergies Home Medications Medication Instructions Recorded Confirmed Type Finasteride [Proscar] 5 mg PO DAILY 10/03/14 11/30/20 History Tamsulosin [Flomax] 0.4 mg PO DAILY 10/03/14 11/30/20 History traMADol HCL [Ultram] 50 mg PO Q6H PRN 10/03/14 11/30/20 History Aspirin [Adult Low Dose Aspirin EC] 81 mg PO DAILY 10/23/16 11/30/20 History Mometasone/Formoterol [Dulera 200 2 puff INHALATION BID 04/25/19 11/30/20 History Mcg-5 Mcg Inhaler] Olmesartan/Hydrochlorothiazide 1 each PO DAILY 04/25/19 11/30/20 History [Benicar Hct 40-25 mg Tablet] Acetaminophen/Diphenhydramine 1 tab PO HS PRN 11/30/20 11/30/20 History [Tylenol PM 500-25mg] Albuterol Nebulized [Ventolin 2.5 mg INHALATION DAILY 11/30/20 11/30/20 History Nebulized] Atorvastatin [Lipitor] 10 mg PO HS 11/30/20 11/30/20 History Cholecalciferol [Vitamin D3 (25 25 mcg PO DAILY PRN 11/30/20 11/30/20 History Mcg = 1000 Iu)] Allergies Allergy/AdvReac Type Severity Reaction Status Date / Time No Known Allergies Allergy Verified 11/30/20 08:23
[2020-12-03 08:46] VITALS: TEMP 97.6
[2020-12-03] MEDS ORDERED: LACTATED RINGERS 1,000 ML IV ONE (08:46)
[2020-12-03] MEDS ORDERED: LIDOCAINE 1% INJ 10MG/ML (20 ML MDV) ONE (09:20)
[2020-12-03] MEDS ORDERED: PROPOFOL 10 MG/ML 20 ML VIAL IV ONE (09:20)
--- NOTE | 2020-12-03 09:34 | P.PCN ---
Date of Procedure: 12/03/20 Description of Procedure: PREOPERATIVE DIAGNOSIS: Gastroesophageal reflux disease. Morbid obesity. Anemia POSTOPERATIVE DIAGNOSIS: Morbid obesity. Gastritis. Gastroesophageal reflux disease. Diaphragmatic hiatal hernia Anemia OPERATION: Esophagogastroduodenoscopy with biopsies along antrum and duodenum SURGEON: So Pastor MD ANESTHESIA: MAC. INDICATIONS: The patient is a 75-year-old male who presents with a history of reflux disease and new anemia. Benefits and risks of the procedure were described. Informed consent was obtained. DESCRIPTION: The patient was brought into the endoscopy suite and laid in the left lateral decubitus position. An Olympus gastroscope was passed along the posterior oropharynx down to the distal esophagus where the squamocolumnar junction was encountered at 40 cm from the incisors. The stomach was entered and no bile reflux was found. Additional findings are listed below. Biopsies with cold forceps were obtained of the antrum. The first through third portion of the duodenum was examined and biopsies obtained of the duodenum for celiac disease. Retroflexion of the scope confirmed Hill grade 3 lower esophageal valve. The squamocolumnar junction demonstrated LA grade B erosive esophagitis. The stomach was desufflated. The patient tolerated the procedure well. FINDINGS: Squamocolumnar junction 40 cm from the incisors. Diaphragmatic hiatus at 43 cm. Hiatal hernia, 3 cm Hill grade 3 lower esophageal valve. LA grade B erosive esophagitis. Mild duodenitis. Chronic gastritis RECOMMENDATIONS: Upper endoscopy as needed.
--- NOTE | 2020-12-03 09:57 | P.PCN ---
Date of Procedure: 12/03/20 Description of Procedure: PREOPERATIVE DIAGNOSIS: Anemia POSTOPERATIVE DIAGNOSIS: Tubular adenoma ascending colon Tubular adenoma ileocecal valve Sigmoid diverticulosis Ileocecal mass with ulceration OPERATION: Colonoscopy to the ileocecal valve and appendiceal orifice, cecum Colonoscopy with hot snare polypectomy Colonoscopy with Bertha ink tattoo, 4 mL SURGEON: So Pastor MD. ANESTHESIA: MAC. INDICATIONS: The patient is an 75-year-old male who presents with new anemia. Benefits and r isks were described and informed consent was obtained. DESCRIPTION OF PROCEDURE: The patient had undergone Sutab prep. The patient had been brought into the operating room and laid in the left lateral decubitus position. After adequate intravenous sedation, the rectum was examined with 2% lidocaine jelly. The prosthetic fossa was unremarkable. No external hemorrhoids were encountered. The rectal tone was within normal limits. No lesions were palpated in the rectal vault. An Olympus colonoscope was advanced until the cecum, ileocecal valve and appendiceal orifice were clearly viewed. The prep was good. Sigmoid diverticulosis was encountered. Colonic polyps were found and removed. A large 40% ulcerative easily friable tumor was identified along the ileocecal valve with attempted resection. Bertha ink 4 mL was placed circumferentially at the mass. No evidence of focal colitis was found. Retroflexion of the scope demonstrated grade 2 internal hemorrhoids without active bleeding or inflammation. The colon was desufflated. The patient had tolerated the procedure well. Withdrawal time was over 6 minutes. FINDINGS: Aronchick preparation quality scale 2 (1-5) Internal hemorrhoids, grade 2 No external hemorrhoids No arteriovenous malformations. Sigmoid diverticulosis Removal of 2 polyps: - Snare polypectomy ascending colon, 5 mm tubulovillous adenoma polyp. - Snare polypectomy ileocecal valve, 4 mm flat villous adenoma polyp. A large 40% ulcerative easily friable tumor was identified along the ileocecal valve/cecum with attempted resection. -Bertha ink 4 mL was placed circumferentially at the mass. No focal colitis. RECOMMENDATIONS: 1. Colon resection device for large ulcerative ileal cecal mass Plan - Discharge Summary New Discharge Prescriptions: No Action Tamsulosin [Flomax] 0.4 mg PO DAILY Finasteride [Proscar] 5 mg PO DAILY traMADol HCL [Ultram] 50 mg PO Q6H PRN PRN Reason: Pain Aspirin [Adult Low Dose Aspirin EC] 81 mg PO DAILY Olmesartan/Hydrochlorothiazide [Benicar Hct 40-25 mg Tablet] 1 each PO DAILY Mometasone/Formoterol [Dulera 200 Mcg-5 Mcg Inhaler] 2 puff INHALATION BID Albuterol Nebulized [Ventolin Nebulized] 2.5 mg INHALATION DAILY Atorvastatin [Lipitor] 10 mg PO HS Cholecalciferol [Vitamin D3 (25 Mcg = 1000 Iu)] 25 mcg PO DAILY PRN PRN Reason: sleep Acetaminophen/Diphenhydramine [Tylenol PM 500-25mg] 1 tab PO HS PRN PRN Reason: sleep Discharge Medication List Finasteride [Proscar] 5 mg PO DAILY 10/03/14 [History] Tamsulosin [Flomax] 0.4 mg PO DAILY 10/03/14 [History] traMADol HCL [Ultram] 50 mg PO Q6H PRN 10/03/14 [History] Aspirin [Adult Low Dose Aspirin EC] 81 mg PO DAILY 10/23/16 [History] Mometasone/Formoterol [Dulera 200 Mcg-5 Mcg Inhaler] 2 puff INHALATION BID 04/25/19 [History] Olmesartan/Hydrochlorothiazide [Benicar Hct 40-25 mg Tablet] 1 each PO DAILY 04/25/19 [History] Acetaminophen/Diphenhydramine [Tylenol PM 500-25mg] 1 tab PO HS PRN 11/30/20 [History] Albuterol Nebulized [Ventolin Nebulized] 2.5 mg INHALATION DAILY 11/30/20 [History] Atorvastatin [Lipitor] 10 mg PO HS 11/30/20 [History] Cholecalciferol [Vitamin D3 (25 Mcg = 1000 Iu)] 25 mcg PO DAILY PRN 11/30/20 [History]
[2020-12-03 10:58] VITALS: BP 128/74; PULSE 74; RESP 17
== END 2020-12-03 11:11 | disposition home or self-care (01) ==
LOC: ORWHC2ENDO 08:26
PROVIDERS: ATTEND Surgery Plastic and Reconstructive Surgery
DX: D12.0 Benign neoplasm of cecum (principal); K29.51 Unspecified chronic gastritis with bleeding; K21.9 Gastro-esophageal reflux disease without esophagitis; K29.80 Duodenitis without bleeding; K44.9 Diaphragmatic hernia without obstruction or gangrene; D64.9 Anemia, unspecified; E66.01 Morbid (severe) obesity due to excess calories; Z68.39 Body mass index [BMI] 39.0-39.9, adult; K57.30 Diverticulosis of large intestine without perforation or abscess without bleeding; K22.11 Ulcer of esophagus with bleeding; D50.0 Iron deficiency anemia secondary to blood loss (chronic); J44.9 Chronic obstructive pulmonary disease, unspecified; Z86.718 Personal history of other venous thrombosis and embolism; H91.90 Unspecified hearing loss, unspecified ear; E78.5 Hyperlipidemia, unspecified; I10 Essential (primary) hypertension; M19.90 Unspecified osteoarthritis, unspecified site; Z87.01 Personal history of pneumonia (recurrent); Z86.711 Personal history of pulmonary embolism; Z90.49 Acquired absence of other specified parts of digestive tract; Z98.890 Other specified postprocedural states; Z87.891 Personal history of nicotine dependence; Z82.49 Family history of ischemic heart disease and other diseases of the circulatory system; Z80.0 Family history of malignant neoplasm of digestive organs; Z80.9 Family history of malignant neoplasm, unspecified; Z82.61 Family history of arthritis; Z79.82 Long term (current) use of aspirin; Z79.899 Other long term (current) drug therapy; K64.1 Second degree hemorrhoids
CPT/HCPCS: 88305; 45385; 43239; 45381; J2001; J2704

== ENCOUNTER → 2020-12-28 | Outpatient (CLI) | payer MEDICARE | END | disposition home or self-care (01) | LOC: LABWHC1 09:01 | PROVIDERS: ATTEND Surgery Plastic and Reconstructive Surgery | DX: Z01.812 Encounter for preprocedural laboratory examination (principal) | CPT/HCPCS: 36415; 80053; 85027; 86850; 86900; 86901 ==

== ENCOUNTER 2021-01-03 07:30 | Inpatient (IN) | payer MEDICARE ==
[2020-12-28 15:06] LABS: HCT 35.2 % (39.6-50.0); HGB 11.3 g/dL (13.0-17.0); MCH 28.5 pg (27.0-32.0); MCHC 32.1 g/dL (32.0-37.0); MCV 88.9 fL (80.0-97.0); Mean Platelet Volume 11.5 fL (9.5-12.2); Platelet Count 206 X 10*3/uL (140-440); RBC 3.96 X 10*6/uL (4.40-5.60); RDW 12.6 % (11.5-14.5); WBC 5.57 X 10*3/uL (4.50-10.00)
[2020-12-28 16:16] LABS: African American GFR (CKD) 51.6 (60.0-200.0); Albumin 4.3 g/dL (3.8-4.9); Albumin/Globulin Ratio 2.03 (1.60-3.17); Anion Gap 13.8 mmol/L (4.00-12.00); BUN/Creat Ratio 27.55 Ratio (12.00-20.00); Blood Urea Nitrogen 41.6 mg/dL (9.0-27.0); Calcium 9.5 mg/dL (8.7-10.3); Carbon Dioxide 20.2 mmol/L (21.6-31.8); Globulin 2.1 g/dL (1.6-3.3); Non-African American GFR(CKD) 44.5 (60.0-200.0); Potassium 4.1 mmol/L (3.5-5.5); Total Bilirubin 0.3 mg/dL (0.30-1.20); Total Protein 6.5 g/dL (6.2-8.2)
[2021-01-01 08:49] VITALS: BMI 37.6
[~2021-01-03 07:30] MED LIST changes: +ACETAMINOPHEN TAB 500 MG TAB PO PRN; +ALVIMOPAN 12 MG CAPSULE PO PRN; +DEXAMETHASONE SOD PHOSPHATE 4 MG/ML 1 ML VIAL IV ONE; +HEPARIN SODIUM,PORCINE/PF 5,000 UNIT/0.5 ML SYRINGE SQ PRN; +HYDROmorphone 0.5 MG/0.5 ML SYRINGE IVP PRN; -LACTATED RINGERS 1,000 ML IV SCH; -LIDOCAINE 1% (10MG/ML) FOR IV START INTRADERMA PRN; +ONDANSETRON 4 MG/2 ML VIAL IVP ONE; +ceFAZolin 3 GM in SODIUM CHLORIDE 0.9% 100 ML IVPB PRN
--- NOTE | 2021-01-03 07:59 | P.GSHP ---
History of Present Illness H&P Date: 01/03/21 CHIEF COMPLAINT: Cecal adenoma HISTORY OF PRESENT ILLNESS: The patient is a 75-year-old male with a right cecal adenoma. He also has anemia. He presents here for partial colectomy of cecal adenoma recently diagnosed less than 6 months ago. PAST MEDICAL HISTORY: Please see list. PAST SURGICAL HISTORY: Please see list. MEDICATIONS: Please see list. ALLERGIES: Please see list. SOCIAL HISTORY: No illicit drug use FAMILY HISTORY: No reports of Crohn disease or ulcerative colitis. REVIEW OF ORGAN SYSTEMS: CONSTITUTIONAL: Denies any fever or chills. HEENT: Denies any trouble with vision or nosebleeds. No difficulty swallowing. LYMPHATIC: The patient denies any lumps and bumps around the neck. ENDOCRINE: Denies any thyroid disorders. RESPIRATORY: Denies pneumonia. Denies any troubles with breathing or dyspnea on exertion. CARDIOVASCULAR: Denies any chest pain, palpitations, or recent heart attacks. GASTROINTESTINAL: Has constipation and recent colonoscopy 1 week ago. GENITOURINARY: Has increased urinary frequency. MUSCULOSKELETAL: Has back pain, stiffness, joint arthritis. NEUROLOGIC: Denies any numbness or tingling along the distal extremities. No seizure disorders or headaches. PSYCHIATRIC: Denies depression or suidical ideation. HEMATOLOGIC: Denies any abnormal bleeding or bruising. PHYSICAL EXAM: VITAL SIGNS: Stable GENERAL: Well-developed pleasant in no acute distress. HEENT: No scleral icterus. Extraocular movements grossly intact. Moist buccal mucosa. He is hard of hearing. NECK: Supple without lymphadenopathy. CHEST: Unlabored respirations. Equal bilateral excursions. CARDIOVASCULAR: Regular rate and rhythm. Distal 2+ pulses. ABDOMEN: Soft, nontender, nondistended. MUSCULOSKELETAL: No clubbing, cyanosis, or edema. NERUO: Regular 2-12 grossly intact. PSYCH: Alert and oriented to person place and time. ASSESSMENT: 1. Cecal adenoma, unresectable PLAN: 1. Benefits and risks of surgical intervention right colectomy described. Robotic-assisted approach was also described. 2. He has completed an enhanced colon recovery program. 3. DVT prophylaxis. 4. Antibiotic prophylaxis. Past Medical History Past Medical History: Cancer, COPD, Deep Vein Thrombosis (DVT), Hearing Disorder / Deafness, Hyperlipidemia, Hypertension, Osteoarthritis (OA), Pneumonia, Pulmon natan Embolus (PE) Additional Past Medical History / Comment(s): colon cancer History of Any Multi-Drug Resistant Organisms: None Reported Past Surgical History: Appendectomy, Cholecystectomy, Orthopedic Surgery Additional Past Surgical History / Comment(s): COLONOSCOPY W/POLYPECTOMY,BONE TAKEN FROM RT HIP AND INSERTED INTO RT ANKLE Past Anesthesia/Blood Transfusion Reactions: No Reported Reaction Additional Past Anesthesia/Blood Transfusion Reaction / Comment(s): had ruptured appendix in 70's-"almost lost him" states not from anesthesia Smoking Status: Former smoker - Past Family History Son(s) Family Medical History: Deep Vein Thrombosis (DVT) Brother(s) Family Medical History: Cancer Daughter(s) Family Medical History: Cancer Father Family Medical History: Cancer Additional Family Medical History / Comment(s): HAD COLON CANCER Mother Family Medical History: Hypertension, Rheumatoid Arthritis (RA) Additional Family Medical History / Comment(s): STILL ALIVE LIVES AT [facility] Medications and Allergies Home Medications Medication Instructions Recorded Confirmed Type Finasteride [Proscar] 5 mg PO DAILY 10/03/14 01/01/21 History Tamsulosin [Flomax] 0.4 mg PO DAILY 10/03/14 01/01/21 History traMADol HCL [Ultram] 50 mg PO Q6H PRN 10/03/14 01/01/21 History Aspirin [Adult Low Dose Aspirin EC] 81 mg PO DAILY 10/23/16 01/01/21 History Mometasone/Formoterol [Dulera 200 2 puff INHALATION BID 04/25/19 01/01/21 History Mcg-5 Mcg Inhaler] Olmesartan/Hydrochlorothiazide 1 each PO DAILY 04/25/19 01/01/21 History [Benicar Hct 40-25 mg Tablet] Atorvastatin [Lipitor] 10 mg PO HS 11/30/20 01/01/21 History Cholecalciferol [Vitamin D3 (25 25 mcg PO DAILY 11/30/20 01/01/21 History Mcg = 1000 Iu)] Acetaminophen/Diphenhydramine 2 tab PO HS PRN 01/01/21 01/01/21 History [Tylenol PM 500-25mg] Albuterol Nebulized [Ventolin 2.5 mg INHALATION DIRECTED PRN 01/01/21 01/01/21 History Nebulized] Allergies Allergy/AdvReac Type Severity Reaction Status Date / Time No Known Allergies Allergy Verified 01/01/21 08:35 Results - Labs 12/28/20 09:36 12/28/20 09:36
[2021-01-03] MEDS ORDERED: GABAPENTIN 300 MG CAP PO PRN (08:00)
[2021-01-03] MEDS ORDERED: Antibiotics per Pharmacy 1 EACH MISC MISCELLANE PRN (08:00)
[2021-01-03] MEDS ORDERED: TAMSULOSIN 0.4 MG CAP.ER.24H PO PRN (08:00)
[2021-01-03] MEDS: LACTATED RINGERS 1,000 ML IV SCH ×2 (12:52→16:15)
[2021-01-03] MEDS ORDERED: LIDOCAINE 1% (10MG/ML) FOR IV START INTRADERMA ONE (12:53)
[2021-01-03 13:09] LABS: Basophils % (A) 0 %; Eosinophils # (A) 0.1 k/uL (0-0.7); Eosinophils % (A) 1 %; HCT 32.4 % (39.0-53.0); HGB 11.4 gm/dL (13.0-17.5); Lymphocytes # (A) 0.8 k/uL (1.0-4.8); Lymphocytes % (A) 15 %; MCH 30.4 pg (25.0-35.0); MCV 86.9 fL (80.0-100.0); Mean Platelet Volume 8.9; Monocytes # (A) 0.3 k/uL (0-1.0); Monocytes % (A) 5 %; Neutrophils # (A) 3.9 k/uL (1.3-7.7); Neutrophils % (A) 76 %; Platelet Count 181 k/uL (150-450); RBC 3.73 m/uL (4.30-5.90); RDW 12.4 % (11.5-15.5); WBC 5.1 k/uL (3.8-10.6)
[2021-01-03 13:26] LABS: Albumin 3.6 g/dL (3.5-5.0); Calcium 9.6 mg/dL (8.4-10.2); Potassium 3.2 mmol/L (3.5-5.1); Total Bilirubin 0.3 mg/dL (0.2-1.3); Total Protein 6.1 g/dL (6.3-8.2)
[2021-01-03] MEDS ORDERED: MIDAZOLAM 2 MG/2 ML VIAL IVP ONE (14:23)
[2021-01-03] MEDS ORDERED: NALOXONE 0.4 MG/ML 1 ML VIAL IV PRN (16:01)
[2021-01-03] MEDS ORDERED: GLYCOPYRROLATE 0.2 MG/ML 2 ML VIAL ONE (16:18)
[2021-01-03] MEDS ORDERED: LIDOCAINE 1% INJ 10MG/ML (20 ML MDV) ONE (16:18)
[2021-01-03] MEDS ORDERED: SUCCINYLCHOLINE CHLORIDE 100 MG/5 ML SYR IV ONE (16:18)
[2021-01-03] MEDS ORDERED: ROCURONIUM 10 MG/ML (5 ML VIAL) IV ONE (16:18)
[2021-01-03] MEDS ORDERED: PROPOFOL 10 MG/ML 20 ML VIAL IV ONE (16:18)
[2021-01-03] MEDS ORDERED: PHENYLEPHRINE-0.9% NACL SYG 1,000 MCG/10 ML SYRINGE ONE (16:18)
[2021-01-03] MEDS ORDERED: fentaNYL (PF) 50 MCG/ML 2 ML AMP ONE (16:18)
[2021-01-03] MEDS ORDERED: MIDAZOLAM 2 MG/2 ML VIAL ONE (16:18)
[2021-01-03] MEDS ORDERED: NEOSTIGMINE 1 MG/ML 10 ML VIAL ONE (16:18)
[2021-01-03] MEDS ORDERED: ePHEDrine 50 MG/ML 1 ML AMP ONE (16:18)
[2021-01-03] MEDS ORDERED: BUPIVACAIN-EPI 0.25%-1:200,000 30 ML VIAL SQ ONE (16:39)
[2021-01-03] MEDS: metroNIDAZOLE-NS PMX 500 MG in SALINE 1 100ML.BAG IVPB PRN ×2 (16:41→16:46)
[2021-01-03] MEDS ORDERED: LACTATED RINGERS 1,000 ML IV ONE ×2 (17:30→20:02)
[2021-01-03] MEDS ORDERED: BENZOCAINE/MENTHOL LOZENG 1 EACH LOZENGE MUCOUS MEM PRN (20:27)
[2021-01-03] MEDS ORDERED: METOCLOPRAMIDE 5 MG/ML 2 ML VIAL IVP PRN (20:27)
[2021-01-03] MEDS: ROPIVACAINE 250 MG, HYDROMORPHONE (PF) 5 MG in SODIUM CHLORIDE 0.9% 200 ML EPIDURAL PRN ×2 (20:29→21:20)
[2021-01-03] MEDS ORDERED: traMADol 50 MG TAB PO PRN (20:31)
--- NOTE | 2021-01-03 20:42 | P.OP ---
Date of Procedure: 01/03/21 Description of Procedure: SURGEON: KENZIE LEVIN MD Preoperative Diagnosis: 1. Cecal colon cancer 2. Hypertensive heart disease 3. Chronic obstructive pulmonary disease 4. Morbid obesity due to excess calories, BMI 37.8 5. 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 Personal history of DVT and pulmonary embolism Postoperative Diagnosis: 1. Cecal colon cancer 2. Hypertensive heart disease 3. Chronic obstructive pulmonary disease 4. Morbid obesity due to excess calories, BMI 37.8 5. 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 Personal history of DVT and pulmonary embolism 7. Intra-abdominal peritoneal adhesions right lower quadrant from prior surgery Procedure(s) Performed: 1. Robot-assisted daVinci Xi laparoscopic lysis of adhesions over 1.5 hrs 2. Robot-assisted daVinci Xi laparoscopic extended right hemicolectomy Anesthesia: GETA, local Estimated Blood Loss (ml): 20 Condition: stable SPECIMENS REMOVED: terminal ileum and extended right colon en bloc COMPLICATIONS: None. Disposition: floor Operative Findings: 1. Tattoo identified along the cecum 2. More than 6 cm border obtained from tattoo dye for resection 3. No peritoneal metastases identified 4. Extended right hemicolectomy to mid transverse colon 5. Redundant hepatic flexure resected 6. Severe peritoneal adhesions right lower quadrant from previous open appendectomy including small bowel to the abdominal wall lysed INDICATIONS: The patient is a 75-year-old male who presents with cecal colon cancer. Surgical intervention with colon resection was described in detail. Benefits and risks, including infection, open surgery possibility for additional surgery was discussed at length. Informed consent was obtained. All questions of the patient and family were answered. DESCRIPTION: Earlier the patient had undergone a bowel prep using the enhanced colon recovery program. No epidural was used secondary to pre-existing hypotension. The patient was transferred to the operating room and placed in supine position. After general anesthetic, a nieves catheter was placed with over 2200 mL decompressed upon insertion. The abdomen was then prepped and draped in standard sterile fashion as Ioban was placed along the abdomen to minimize any contamination of skin floor. After a timeout protocol was performed, attention was then brought to the left upper quadrant whereby a 0 degree 5 mm laparoscopic trocar entry was performed. The abdominal cavity was entered and insufflated to 15 mmHg pressure, which was tolerated well. Diagnostic laparoscopy demonstrated no injury to bowel, viscera or mesentery. The liver was unremarkable. Small bowel adhesion to the right lower quadrant abdominal wall was identified. Next trochars were placed along the left lateral abdomen. An robotic 8-mm trocar to the left lower abdomen. A 12 mm port was placed along the left lower quadrant. Another 8-mm port along the left upper quadrant. Ports were placed 8 cm apart from each other including 15-20 cm away from the target anatomy of the right pelvis. The 5-mm port was exchanged for a 12 mm robotic port. The patient was then placed in right side up 7 and December 7 degrees.. The robotic da Kristine XI system was primed and docked from the right side of the patient. Using atraumatic graspers and vessel sealer, the robotic system was docked and primed as described. Instruments were interchanged by the clinical physician assistant including scissors, needle intermodal truck driver, robotic stapler and vessel sealer. Initial attention was brought to the small bowel adhered to the right lower quadrant which was lysed using vessel sealer and blunt dissection. No enterotomies were identified. Moderate adhesions involving the right lower quadrant small bowel interloop adhesions were also lysed using vessel sealer. Next, attention was brought to identify the cecum. A stay suture using 3-0 silk was placed along the anterior serosa of the along the terminal ileum. The terminal ileum and ascending colon mesentery was mobilized using a vessel sealer whereby the colon was marked and tagged. Tattoo was identified along the cecum. The colon was prepared for resection along the mid transverse colon including for resection along the terminal ileum. Severe adhesions involving the hepatic flexure from moderate redundancy was also identified adding complexity to the case. Over 1.5 hours of extensive lysis of adhesions performed including mobilization of the hepatic flexure and small b owel adhesional lysis. Using robot stapler 60 mm blue load, the distal ileum was divided 8 centimeters proximal to the ileocecal valve. The mesentery of the ascending colon was mobilized towards the midline using a vessel sealer. The right colon was mobilized to the mid transverse colon and prepared for resection. The colon was divided using 60 mm green loads. The rest of the colon mesentery was mobilized using vessel sealer including using blunt dissection. The ascending colon was mobilized from proximal to distal with the meeting point of the hepatic flexure. The vascular pedicle of the ileocolic artery was controlled using vessel sealer. The mid transverse colon and distal ileum was brought in a side to side antiperistaltic anastomotic fashion after placing interrupted sutures along the proposed brian-lumen using 3-0 silk. A colotomy and enterotomy was prepared along both limbs along the antimesenteric border. Next, 60 mm green stapler loads were fired to create the brian-lumen. The brian-lumen was reapproximated using 3-0 silk followed by 60 mm green load for closure of the enterostomy. All needles were removed from the abdominal cavity. The robot was undocked. I re-scrubbed into the case. Via the 12 mm port of the left upper quadrant, the right colon was removed after widening the skin incision to 3-cm. All sponges were removed from the abdominal cavity. The fascial defect was oversewn using 0 Vicryl and Jeff Schmid. Next all pneumoperitoneum was evacuated from the abdominal cavity. The 8-mm trocar sites were reapproximated using 4-0 Monocryl in an interrupted subcuticular fashion. Local anesthetic was infiltrated to all wounds for postop analgesia. All incisions were also cleansed with diluted hydrogen peroxide. Optifoam was applied to the left upper quadrant incision. Liquid was applied to the rest of the skin incisions. The patient had tolerated the procedure well. The patient was extubated successfully. Intraoperative photos were reviewed with the patient's family who were overall pleased with the level of care. The patient was transferred to the postanesthesia care unit in stable condition.
--- NOTE | 2021-01-03 20:57 | P.ANPRN ---
Procedure Note - Anesthesia - Epidural/Spinal Epidural Continuous Time Out Performed: Yes Date of Procedure: 01/03/21 Procedure Start Time: 14:23 Procedure Stop Time: 14:32 Location of Patient: PreOp Indication: Acute Post-Operative Pain, Requested by Surgeon Sedation Type: Sedate with meaningful contact maintained Preparation: Sterile Dressing Position: Sitting Catheter: Indwelling Needle Guage: 18 Injectate: Test Dose Lidocaine1.5% w/1:200,000 epi Blood Aspirated: No Pain Paresthesia on Injection Noted: No Events: Uneventful and Well Tolerated (test dose 3cc given with no adverse effects)
[2021-01-03] MEDS: HEPARIN SODIUM,PORCINE/PF 5,000 UNIT/0.5 ML SYRINGE SQ SCH (22:20)
[2021-01-04] MEDS: ONDANSETRON 4 MG/2 ML VIAL IVP SCH ×5 (00:24→22:40)
[2021-01-04] MEDS: SYMBICORT 160-4.5 MCG INHALER INHALATION SCH ×3 (00:45→19:13)
[2021-01-04] MEDS: LACTATED RINGERS 1,000 ML IV SCH (02:39)
[2021-01-04 04:54] LABS: Basophils % (A) 0 %; Eosinophils % (A) 0 %; HCT 31.9 % (39.0-53.0); HGB 10.6 gm/dL (13.0-17.5); Lymphocytes # (A) 0.4 k/uL (1.0-4.8); Lymphocytes % (A) 7 %; MCHC 33.2 g/dL (31.0-37.0); MCV 90.4 fL (80.0-100.0); Mean Platelet Volume 9.3; Monocytes # (A) 0.3 k/uL (0-1.0); Monocytes % (A) 5 %; Neutrophils # (A) 5.8 k/uL (1.3-7.7); Neutrophils % (A) 88 %; Platelet Count 162 k/uL (150-450); RBC 3.53 m/uL (4.30-5.90); RDW 12.7 % (11.5-15.5); WBC 6.7 k/uL (3.8-10.6)
[2021-01-04 05:08] LABS: Calcium 8.9 mg/dL (8.4-10.2)
[2021-01-04] MEDS: ALBUTEROL NEBULIZED 2.5 MG/3 ML INHALATION PRN ×2 (07:45→19:13)
[2021-01-04] MEDS: TAMSULOSIN 0.4 MG CAP.ER.24H PO SCH (08:56)
[2021-01-04] MEDS: FINASTERIDE 5 MG TAB PO SCH (08:56)
[2021-01-04] MEDS: ALVIMOPAN 12 MG CAPSULE PO SCH ×2 (08:56→20:16)
[2021-01-04] MEDS: LOSARTAN 50 MG TAB PO SCH (08:56)
[2021-01-04] MEDS: hydroCHLOROthiazide 25 MG TAB PO SCH (08:56)
[2021-01-04] MEDS: HEPARIN SODIUM,PORCINE/PF 5,000 UNIT/0.5 ML SYRINGE SQ SCH ×2 (08:56→20:16)
[2021-01-04] MEDS ORDERED: NON FORMULARY DRUG (Olmesartan/Hydrochlorothiazide [Benicar Hct 40-25 Mg Tablet] 1 EACH Ta PO SCH (09:00)
[2021-01-04] MEDS ORDERED: MAGNESIUM HYDROXIDE 2,400 MG/10 ML CUP PO ONE (12:42)
[2021-01-04] MEDS: DOCUSATE 100 MG CAP PO SCH ×2 (13:28→20:15)
[2021-01-04 13:30] LABS: % Iron Saturation 7.29 (15.00-50.00)
--- NOTE | 2021-01-04 16:34 | P.PN ---
Subjective Progress Note Date: 01/04/21 CHIEF COMPLAINT: Cecal colon cancer HISTORY OF PRESENT ILLNESS: Patient is status post Robot-assisted daVinci Xi laparoscopic lysis of adhesions and Robot-assisted daVinci Xi laparoscopic extended right hemicolectomy. Patient reports his pain is controlled. He denies any nausea or vomiting. He is tolerating diet. He denies any flatus or BM. Patient scheduled epidural discontinued today. Talavera catheter has been discontinued. Afebrile. WBC is 6.7 Hgb 10.6 platelets 162 sodium 136 potassium 4 creatinine 1.26 PHYSICAL EXAM: VITAL SIGNS: Reviewed GENERAL: Well-developed in no acute distress. HEENT: No sclera icterus. Extraocular movements grossly intact. Moist buccal mucosa. Head is atraumatic, normocephalic. Hears conversational speech. No nasal drainage. NECK: Supple without lymphadenopathy. CHEST: Non-labored respirations and equal bilateral excursions. CARDIOVASCULAR: Palpable 2+ radial pulses. ABDOMEN: Soft. Nondistended. Nontender. MUSCULOSKELETAL: No clubbing or cyanosis. NEUROLOGIC: No focal or lateralizing signs. Cranial nerves II through XII grossly intact. PSYCH: Appropriate affect. Alert and oriented to person, place and time. SKIN: Well perfused. Good skin turgor. ASSESSMENT: 1. Cecal colon cancer 2. Hypertensive heart disease 3. Chronic obstructive pulmonary disease 4. Morbid obesity due to excess calories, BMI 37.8 5. 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 Personal history of DVT and pulmonary embolism 7. Intra-abdominal peritoneal adhesions right lower quadrant from prior surgery PLAN: -Discontinue epidural -Check bladder scan and monitor urine output -Continue pain medication needed -Colace and milk of magnesia ordered to stimulate bowel movement -Encourage patient to ambulate -Encourage patient to use incentive spirometer -GI prophylaxis Protonix and DVT prophylaxis subcu heparin Physician Rope Maker note has been reviewed by physician. Signing provider agrees with the documented findings, assessment, and plan of care. Objective - Vital Signs Vital signs: Vital Signs Temp 98.2 F 01/04/21 14:08 Pulse 65 01/04/21 14:08 Resp 18 01/04/21 14:08 BP 101/66 01/04/21 14:08 Pulse Ox 100 01/04/21 14:08 Intake & Output 01/03/21 01/04/21 01/04/21 18:59 06:59 18:59 Intake Total 3200 2006.8 Output Total 4170 600 Balance 3200 -2163.2 -600 Weight 123 kg 123 kg Intake: IV 3200 406.8 Oral 1600 Output: Urine 4150 600 Uretheral (Talavera) 600 Estimated Blood Loss 20 Other: Voiding Method Indwelling Catheter Indwelling Catheter - Labs CBC & Chem 7: 01/04/21 04:22 01/04/21 04:22 Labs: Abnormal Lab Results - Last 24 Hours (Table) 01/04/21 01/04/21 Range/Units 04:22 04:22 RBC 3.53 L (4.30-5.90) m/uL Hgb 10.6 L (13.0-17.5) gm/dL Hct 31.9 L (39.0-53.0) % Lymphocytes # 0.4 L (1.0-4.8) k/uL Sodium 136 L (137-145) mmol/L BUN 24 H (9-20) mg/dL Creatinine 1.26 H (0.66-1.25) mg/dL Glucose 124 H (74-99) mg/dL Iron 15 L (65-175) ug/dL TIBC 207 L (228-460) ug/dL % Saturation 7.29 L (15.00-50.00) Transferrin 148.0 L (204.0-354.0) mg/dL Ferritin 412.0 H (22.0-322.0) ng/mL
[2021-01-04] MEDS ORDERED: LIDOCAINE URO-JET JELLY 2% 5 ML KIT URETHRAL ONE (17:44)
[2021-01-05] MEDS: HYDROmorphone 1 MG/ML 1 ML SYRINGE IVP PRN ×2 (03:17→06:30)
[2021-01-05] MEDS ORDERED: CALCIUM CARBONATE 500 MG CHEWABLE PO PRN (03:38)
[2021-01-05] MEDS: ONDANSETRON 4 MG/2 ML VIAL IVP SCH (05:40)
--- NOTE | 2021-01-05 07:09 | P.GSCN ---
History of Present Illness Consult date: 01/04/21 Reason for Consult: Urinary Retention Requesting physician: So Pastor History of present illness: The patient is a 75-year-old white male who has been followed by Dr. Paniagua in the past for BPH. He continues to take tamsulosin and finasteride. He has been told that he has a significantly enlarged prostate. Yesterday he underwent Robot-assisted daVinci Xi laparoscopic lysis of adhesions and extended right he micolectomy for a right cecal adenoma. He has developed postoperative urinary retention, and attempts by the nursing staff to insert a Talavera catheter been unsuccessful. I am consulted for this reason. The patient states that he was not having any voiding difficulties prior to admission. Review of Systems - Cardiovascular Reports high blood pressure - Gastrointestinal Reports as per HPI - Genitourinary Reports as per HPI Past Medical History Past Medical History: Cancer, COPD, Deep Vein Thrombosis (DVT), Hearing Disorder / Deafness, Hyperlipidemia, Hypertension, Osteoarthritis (OA), Pneumonia, Pulmonary Embolus (PE) Additional Past Medical History / Comment(s): colon cancer History of Any Multi-Drug Resistant Organisms: None Reported Past Surgical History: Appendectomy, Cholecystectomy, Orthopedic Surgery Additional Past Surgical History / Comment(s): COLONOSCOPY W/POLYPECTOMY,BONE TAKEN FROM RT HIP AND INSERTED INTO RT ANKLE Past Anesthesia/Blood Transfusion Reactions: No Reported Reaction Additional Past Anesthesia/Blood Transfusion Reaction / Comm: had ruptured appendix in 70's-"almost lost him" states not from anesthesia Past Psychological History: No Psychological Hx Reported Additional Psychological History / Comment(s): . Smoking Status: Former smoker Past Alcohol Use History: Occasional Additional Past Alcohol Use History / Comment(s): SMOKED FOR 25 YEARS- UP TO 2 PPD, QUIT IN 1987. Past Drug Use History: None Reported - Past Family History Son(s) Family Medical History: Deep Vein Thrombosis (DVT) Brother(s) Family Medical History: Cancer Daughter(s) Family Medical History: Cancer Father Family Medical History: Cancer Additional Family Medical History / Comment(s): HAD COLON CANCER Mother Family Medical History: Hypertension, Rheumatoid Arthritis (RA) Additional Family Medical History / Comment(s): STILL ALIVE LIVES AT [facility] Medications and Allergies Home Medications Medication Instructions Recorded Confirmed Type Finasteride [Proscar] 5 mg PO DAILY 10/03/14 01/03/21 History Tamsulosin [Flomax] 0.4 mg PO DAILY 10/03/14 01/03/21 History traMADol HCL [Ultram] 50 mg PO Q6H PRN 10/03/14 01/03/21 History Aspirin [Adult Low Dose Aspirin EC] 81 mg PO DAILY 10/23/16 01/03/21 History Mometasone/Formoterol [Dulera 200 2 puff INHALATION BID 04/25/19 01/03/21 History Mcg-5 Mcg Inhaler] Olmesartan/Hydrochlorothiazide 1 each PO DAILY 04/25/19 01/03/21 History [Benicar Hct 40-25 mg Tablet] Atorvastatin [Lipitor] 10 mg PO HS 11/30/20 01/03/21 History Cholecalciferol [Vitamin D3 (25 25 mcg PO DAILY 11/30/20 01/03/21 History Mcg = 1000 Iu)] Acetaminophen/Diphenhydramine 2 tab PO HS PRN 01/01/21 01/03/21 History [Tylenol PM 500-25mg] Albuterol Nebulized [Ventolin 2.5 mg INHALATION DIRECTED PRN 01/01/21 01/03/21 History Nebulized] Allergies Allergy/AdvReac Type Severity Reaction Status Date / Time No Known Allergies Allergy Verified 01/01/21 08:35 Surgical - Exam Vital Signs Temp Pulse Resp BP Pulse Ox 96.2 F L 100 16 119/70 96 01/03/21 12:36 01/03/21 12:36 01/03/21 12:36 01/03/21 12:36 01/03/21 12:36 - General well developed, well nourished, no distress - Respiratory normal respiratory effort - Abdomen Abdomen: soft, surgical scars, no distended - Genitourinary normal penis with no external lesions, testicles non-tender right: scrotal mass/hydrocele - Psychiatric oriented to time, oriented to person, oriented to place, speech is normal, memory intact Results - Labs 01/04/21 04:22 01/04/21 04:22 Abnormal Lab Results - Last 24 Hours (Table) 01/04/21 01/04/21 Range/Units 04:22 04:22 RBC 3.53 L (4.30-5.90) m/uL Hgb 10.6 L (13.0-17.5) gm/dL Hct 31.9 L (39.0-53.0) % Lymphocytes # 0.4 L (1.0-4.8) k/uL Sodium 136 L (137-145) mmol/L BUN 24 H (9-20) mg/dL Creatinine 1.26 H (0.66-1.25) mg/dL Glucose 124 H (74-99) mg/dL Iron 15 L (65-175) ug/dL TIBC 207 L (228-460) ug/dL % Saturation 7.29 L (15.00-50.00) Transferrin 148.0 L (204.0-354.0) mg/dL Ferritin 412.0 H (22.0-322.0) ng/mL Diabetes panel 01/04/21 Range/Units 04:22 Sodium 136 L (137-145) mmol/L Potassium 4.0 (3.5-5.1) mmol/L Chloride 102 (98-107) mmol/L Carbon Dioxide 24 (22-30) mmol/L BUN 24 H (9-20) mg/dL Creatinine 1.26 H (0.66-1.25) mg/dL Glucose 124 H (74-99) mg/dL Calcium 8.9 (8.4-10.2) mg/dL Calcium panel 01/04/21 Range/Units 04:22 Calcium 8.9 (8.4-10.2) mg/dL Pituitary panel 01/04/21 Range/Units 04:22 Sodium 136 L (137-145) mmol/L Potassium 4.0 (3.5-5.1) mmol/L Chloride 102 (98-107) mmol/L Carbon Dioxide 24 (22-30) mmol/L BUN 24 H (9-20) mg/dL Creatinine 1.26 H (0.66-1.25) mg/dL Glucose 124 H (74-99) mg/dL Calcium 8.9 (8.4-10.2) mg/dL Adrenal panel 01/04/21 Range/Units 04:22 Sodium 136 L (137-145) mmol/L Potassium 4.0 (3.5-5.1) mmol/L Chloride 102 (98-107) mmol/L Carbon Dioxide 24 (22-30) mmol/L BUN 24 H (9-20) mg/dL Creatinine 1.26 H (0.66-1.25) mg/dL Glucose 124 H (74-99) mg/dL Calcium 8.9 (8.4-10.2) mg/dL Assessment and Plan (1) Urinary retention Current Visit: Yes Status: Acute Code(s): R33.9 - RETENTION OF URINE, UNSPECIFIED SNOMED Code(s): 994615597 Plan: The penis was prepped and draped sterilely. 2% lidocaine gel was administered intraurethrally. I was then able to advance a 16-Belarusian coud-tip Talavera catheter into the bladder successfully, with return of 1 L of clear urine. I would suggest that the patient be discharged home with the Talavera catheter and follow up with Dr. Paniagua in 10 days. In the meantime, he should continue to take tamsulosin and finasteride. Please notify me if I can be of any further as sistance.
[2021-01-05] MEDS: ALBUTEROL NEBULIZED 2.5 MG/3 ML INHALATION PRN (08:18)
[2021-01-05] MEDS: SYMBICORT 160-4.5 MCG INHALER INHALATION SCH (08:18)
[2021-01-05] MEDS ORDERED: FAMOTIDINE 20 MG TAB PO SCH (09:00)
[2021-01-05 09:01] VITALS: BP 104/58; PULSE 76; RESP 18; TEMP 98.4
[2021-01-05] MEDS: LOSARTAN 50 MG TAB PO SCH (09:55)
[2021-01-05] MEDS: HEPARIN SODIUM,PORCINE/PF 5,000 UNIT/0.5 ML SYRINGE SQ SCH (09:55)
[2021-01-05] MEDS: TAMSULOSIN 0.4 MG CAP.ER.24H PO SCH (09:56)
[2021-01-05] MEDS: DOCUSATE 100 MG CAP PO SCH (09:56)
[2021-01-05] MEDS: FINASTERIDE 5 MG TAB PO SCH (09:56)
[2021-01-05] MEDS: hydroCHLOROthiazide 25 MG TAB PO SCH (09:56)
[2021-01-05] MEDS: ALVIMOPAN 12 MG CAPSULE PO SCH (09:56)
--- NOTE | 2021-01-05 11:01 | P.PN ---
Progress Note - Text Progress Note Date: 01/05/21 Patient is status post right colectomy. He states he feels well wishes to go home. On exam vital signs are stable. Abdomen soft. Talavera is clear. Status post right club. Patient's urinary retention will be managed with Talavera catheter drainage. He will be discharged home. He'll see the urologist a week after discharge.
[2021-01-05 11:28] LABS: Basophils # (A) 0.04 X 10*3/uL (0.00-0.10); Basophils % (A) 0.5 %; Eosinophils # (A) 0.08 X 10*3/uL (0.04-0.35); Eosinophils % (A) 1.1 %; HCT 29.1 % (39.6-50.0); HGB 9.6 g/dL (13.0-17.0); Lymphocytes # (A) 0.79 X 10*3/uL (0.90-5.00); Lymphocytes % (A) 10.4 %; MCH 28.8 pg (27.0-32.0); MCV 87.4 fL (80.0-97.0); Monocytes # (A) 0.66 X 10*3/uL (0.20-1.00); Monocytes % (A) 8.7 %; Neutrophils # (A) 5.98 X 10*3/uL (1.80-7.70); Neutrophils % (A) 78.9 %; Platelet Count 164 X 10*3/uL (140-440); RBC 3.33 X 10*6/uL (4.40-5.60); RDW 12.8 % (11.5-14.5); WBC 7.58 X 10*3/uL (4.50-10.00)
[2021-01-05 11:52] LABS: African American GFR (CKD) 68.1 (60.0-200.0); Anion Gap 9.4 mmol/L (4.00-12.00); BUN/Creat Ratio 9.58 Ratio (12.00-20.00); Blood Urea Nitrogen 11.5 mg/dL (9.0-27.0); Calcium 8.8 mg/dL (8.7-10.3); Carbon Dioxide 25.6 mmol/L (21.6-31.8); Non-African American GFR(CKD) 58.8 (60.0-200.0); Potassium 3.3 mmol/L (3.5-5.5)
--- NOTE | 2021-01-05 14:09 | P.PN ---
Progress Note - Text Date: 01-04-21 Time:[ 20:18] The patient is status post[ colon resection,] postoperative day number 1. The patient has no complaints of nausea vomiting or headache. The patient does not complain of any lower extremity numbness or weakness. The epidural was discontinued earlier on the per the service. Pain meds will be provided to the patient by the service.
== END 2021-01-05 15:37 | disposition home or self-care (01) | DRG 330 ==
LOC: 2ORMAIN 11:45 → 4SSUR 21:22
PROVIDERS: ADMIT Surgery Plastic and Reconstructive Surgery; ATTEND Surgery Plastic and Reconstructive Surgery
PROC: 0DNF4ZZ Release Right Large Intestine, Percutaneous Endoscopic Approach (ICD-10-PCS; 2021-01-03)
PROC: 8E0W4CZ Robotic Assisted Procedure of Trunk Region, Percutaneous Endoscopic Approach (ICD-10-PCS; 2021-01-03)
PROC: 0DTF4ZZ Resection of Right Large Intestine, Percutaneous Endoscopic Approach (ICD-10-PCS; principal; 2021-01-03 13:45)
DX: C18.0 Malignant neoplasm of cecum (principal); N13.8 Other obstructive and reflux uropathy; E66.01 Morbid (severe) obesity due to excess calories; E78.5 Hyperlipidemia, unspecified; H91.90 Unspecified hearing loss, unspecified ear; I11.9 Hypertensive heart disease without heart failure; J44.9 Chronic obstructive pulmonary disease, unspecified; N40.1 Benign prostatic hyperplasia with lower urinary tract symptoms; K66.0 Peritoneal adhesions (postprocedural) (postinfection); M19.90 Unspecified osteoarthritis, unspecified site; I95.9 Hypotension, unspecified; Z87.891 Personal history of nicotine dependence; Z68.37 Body mass index [BMI] 37.0-37.9, adult; Z86.711 Personal history of pulmonary embolism; Z86.718 Personal history of other venous thrombosis and embolism; Z85.038 Personal history of other malignant neoplasm of large intestine; Z82.49 Family history of ischemic heart disease and other diseases of the circulatory system; Z79.899 Other long term (current) drug therapy; Z80.0 Family history of malignant neoplasm of digestive organs; Z79.82 Long term (current) use of aspirin; Z79.51 Long term (current) use of inhaled steroids
CPT/HCPCS: 36415; 80048; 80053; 82728; 83540; 83550; 85025; 85027; 86850; 86900; 86901; 87635; 94640

== ENCOUNTER → 2021-03-28 | Outpatient (CLI) | payer MEDICARE ==
[2021-03-28 11:32] LABS: % Iron Saturation 21.5 (15.00-50.00)
[2021-03-28 12:23] LABS: Basophils # (A) 0.04 X 10*3/uL (0.00-0.10); Basophils % (A) 0.8 %; Eosinophils # (A) 0.31 X 10*3/uL (0.04-0.35); Eosinophils % (A) 5.9 %; HGB 11.9 g/dL (13.0-17.0); Immature Grans, Automated 0.6 %; Lymphocytes # (A) 1.09 X 10*3/uL (0.90-5.00); Lymphocytes % (A) 20.8 %; MCH 29.2 pg (27.0-32.0); MCHC 32.2 g/dL (32.0-37.0); MCV 90.7 fL (80.0-97.0); Mean Platelet Volume 11.2 fL (9.5-12.2); Monocytes # (A) 0.54 X 10*3/uL (0.20-1.00); Monocytes % (A) 10.3 %; NRBC Per 100 WBC 0 /100 WBCS (0.0-0.0); Neutrophils # (A) 3.22 X 10*3/uL (1.80-7.70); Neutrophils % (A) 61.6 %; Platelet Count 210 X 10*3/uL (140-440); RBC 4.08 X 10*6/uL (4.40-5.60); RDW 13.5 % (11.5-14.5); WBC 5.23 X 10*3/uL (4.50-10.00)
== END | disposition home or self-care (01) ==
LOC: LABWHC1 07:27
PROVIDERS: ATTEND Surgery Plastic and Reconstructive Surgery
DX: D50.0 Iron deficiency anemia secondary to blood loss (chronic) (principal)
CPT/HCPCS: 36415; 83540; 83550; 85025

== ENCOUNTER 2021-04-08 10:30 | Inpatient (IN) | payer MEDICARE ==
--- NOTE | 2021-04-07 10:41 | P.GSHP ---
History of Present Illness H&P Date: 04/07/21 75 yo male with a history of bph due to a very large prostate[>225ml] wh went into urine retention p a colectomy. He has remained in retention despite maximun medical management and several voiding trials He comes for a suprapubic prostatectomy. Alternatives have been discussed, the risks have been discussed including bleeding, incontinence, retention, transfusion, pe infection among otheres. He comes for this procedure. - Constitutional Constitutional: Denies chills, Denies fever - EENT Eyes: denies blurred vision, denies pain Ears, nose, mouth and throat: Denies headache, Denies sore throat - Cardiovascular Cardiovascular: Denies chest pain, Denies shortness of breath - Respiratory Respiratory: Denies cough, Denies 7 - Gastrointestinal Gastrointestinal: Denies abdominal pain, Denies diarrhea, Denies nausea, Denies vomiting - Genitourinary (Female) Genitourinary: Denies dysuria, Denies hematuria - Genitourinary (Male) Genitourinary: Denies dysuria, Denies hematuria - Musculoskeletal Musculoskeletal: Denies myalgias - Integumentary Integumentary: Denies pruritus, Denies rash - Neurological Neurological: Denies numbness, Denies weakness - Psychiatric Psychiatric: Denies anxiety, Denies depression - Endocrine Endocrine: Denies fatigue, Denies weight change Past Medical History Past Medical History: Cancer, COPD, Deep Vein Thrombosis (DVT), Hearing Disorder / Deafness, Hyperlipidemia, Hypertension, Osteoarthritis (OA), Pneumonia, Prostate Disorder, Pulmonary Embolus (PE) Additional Past Medical History / Comment(s): Hx POLYPS, anemia. Hx Colon cancer 01/06. Enlarged prostate, difficulting urinating, has nieves catheter since Dec 27. History of Any Multi-Drug Resistant Organisms: None Reported Past Surgical History: Appendectomy, Bowel Resection, Cholecystectomy, Orthopedic Surgery Additional Past Surgical History / Comment(s): COLONOSCOPY W/POLYPECTOMY, BONE TAKEN FROM RIGHT HIP AND INSERTED INTO RIGHT ANKLE. Past Anesthesia/Blood Transfusion Reactions: No Reported Reaction Additional Past Anesthesia/Blood Transfusion Reaction / Comment(s): "Had ruptured appendix in 70's-"almost lost him" per spouse, unsure if due to anesthesia or the ruptured appy". Past Psychological History: No Psychological Hx Reported Smoking Status: Former smoker Past Alcohol Use History: Occasional Additional Past Alcohol Use History / Comment(s): SMOKED FOR 25 YEARS- UP TO 2 PPD, QUIT IN 1987. Past Drug Use History: None Reported - Past Family History Son(s) Family Medical History: Deep Vein Thrombosis (DVT) Brother(s) Family Medical History: Cancer Daughter(s) Family Medical History: Cancer Father Family Medical History: Cancer Additional Family Medical History / Comment(s): HAD COLON CANCER. Mother Family Medical History: Hypertension, Rheumatoid Arthritis (RA) Additional Family Medical History / Comment(s): STILL ALIVE LIVES AT [facility] Medications and Allergies Home Medications Medication Instructions Recorded Confirmed Type Finasteride [Proscar] 5 mg PO QAM 10/03/14 04/04/21 History Tamsulosin [Flomax] 0.4 mg PO DAILY 10/03/14 04/04/21 History traMADol HCL [Ultram] 50 mg PO Q6H PRN 10/03/14 04/04/21 History Mometasone/Formoterol [Dulera 200 2 puff INHALATION BID 04/25/19 04/04/21 History Mcg-5 Mcg Inhaler] Olmesartan/Hydrochlorothiazide 1 each PO QAM 04/25/19 04/04/21 History [Benicar Hct 40-25 mg Tablet] Atorvastatin [Lipitor] 10 mg PO HS 11/30/20 04/04/21 History Cholecalciferol [Vitamin D3 (25 25 mcg PO DAILY 11/30/20 04/04/21 History Mcg = 1000 Iu)] Acetaminophen/Diphenhydramine 2 tab PO HS PRN 01/01/21 04/04/21 History [Tylenol PM 500-25mg] Albuterol Nebulized [Ventolin 2.5 mg INHALATION DIRECTED PRN 01/01/21 04/04/21 History Nebulized] Allergies Allergy/AdvReac Type Severity Reaction Status Date / Time No Known Allergies Allergy Verified 04/04/21 11:34 Surgical - Exam - General well developed, well nourished, no distress, obese - Eyes normal ocular movement, no icteric - ENT no hearing loss, no congestion - Neck no masses, trachea midline - Respiratory normal respiratory effort, clear to auscultation - Abdomen Abdomen: soft, non tender, no guarding, no rigid, no rebound - Genitourinary catheter, largeprostate on rectal - Integumentary no rash, no abnormal pigmentation - Neurologic no disoriented, no combative - Psychiatric oriented to time, oriented to person, oriented to place, speech is normal, memory intact Assessment and Plan Assessment: impression: urine retention secondary to bph, large prostate Medical illnesses as in pmh, obesity Plan: suprapubic prostatectomy
[~2021-04-08 10:30] MED LIST changes: -ACETAMINOPHEN TAB 500 MG TAB PO PRN; -ALVIMOPAN 12 MG CAPSULE PO PRN; +AMPICILLIN 2,000 MG in SODIUM CHLORIDE 0.9% 100 ML IVPB PRN; -DEXAMETHASONE SOD PHOSPHATE 4 MG/ML 1 ML VIAL IV ONE; +GENTAMICIN 140 MG in SODIUM CHLORIDE 0.9% 100 ML IVPB PRN; -HEPARIN SODIUM,PORCINE/PF 5,000 UNIT/0.5 ML SYRINGE SQ PRN; -HYDROmorphone 0.5 MG/0.5 ML SYRINGE IVP PRN; +LIDOCAINE 1% (10MG/ML) FOR IV START INTRADERMA PRN; -ceFAZolin 3 GM in SODIUM CHLORIDE 0.9% 100 ML IVPB PRN
[2021-04-08] MEDS: LACTATED RINGERS 1,000 ML IV SCH (11:25)
[2021-04-08] MEDS ORDERED: DEXAMETHASONE SOD PHOSPHATE 4 MG/ML 1 ML VIAL IVP ONE (11:30)
[2021-04-08] MEDS ORDERED: PHENYLEPHRINE-0.9% NACL SYG 1,000 MCG/10 ML SYRINGE ONE (12:55)
[2021-04-08] MEDS ORDERED: PROPOFOL 10 MG/ML 20 ML VIAL IV ONE (12:55)
[2021-04-08] MEDS ORDERED: KETAMINE 10 MG/ML 20 ML VIAL ONE (12:55)
[2021-04-08] MEDS ORDERED: ePHEDrine 50 MG/ML 1 ML VIAL ONE (12:55)
[2021-04-08] MEDS ORDERED: fentaNYL (PF) 50 MCG/ML 2 ML AMP ONE (12:55)
[2021-04-08] MEDS ORDERED: LACTATED RINGERS 1,000 ML IV ONE ×2 (13:00→14:48)
[2021-04-08] MEDS ORDERED: ALBUTEROL NEBULIZED 2.5 MG/3 ML INHALATION PRN (14:57)
[2021-04-08] MEDS ORDERED: NALOXONE 0.4 MG/ML 1 ML VIAL IV PRN (15:01)
[2021-04-08] MEDS ORDERED: HYDROmorphone PCA 10 MG/50 ML BAG IV PRN (15:01)
[2021-04-08] MEDS: HYDROmorphone 0.5 MG/0.5 ML SYRINGE IVP PRN ×4 (15:05→15:39)
--- NOTE | 2021-04-08 15:09 | P.OP ---
Date of Procedure: 04/08/21 Preoperative Diagnosis: Urine retention secondary to BPH (large) Postoperative Diagnosis: Same Procedure(s) Performed: Suprapubic prostatectomy Anesthesia: MAC, spinal Surgeon: Cecil Paniagua Heating Fixture Tender #1: Hector Gordon Estimated Blood Loss (ml): 300 Pathology: other (Prostate) Condition: stable Disposition: PACU Indications for Procedure: Patient is 75. He went in urine retention after his colectomy. He is been able to get out of urine retention since then. Medications failed. He has a very large prostate (280 mL). He comes for a suprapubic prostatectomy Description of Procedure: Patient brought to the operating suite. He is given a spinal anesthetic followed by sedation. He is prepped and draped sterilely. Talavera catheters previously been removed. Midline suprapubic incision is made. The rectus fascias are opened. The prevesical space is developed. The prostate is felt and very large. A midline lateral incision is made. The bladder is opened. After adequate retraction we identify each ureteral orifice. We then do a circumferential incision around the bladder neck with electrocautery. I then pass my finger into the prostatic fossa and cracked the commissure at 12:00. I then a nuclear late the right and then left side of the adenoma area and I then eventually the adenoma from the bladder. I then packed the bladder with a gauze sponge. This is left for several minutes. I removed the gauze sponge and then using 3-0 Vicryl close the bladder mucosa to the inside of the prostate circumferentially. Bleeding appears to be adequately controlled. I then place a 20-Macanese 30 mL balloon into the bladder through the urethra. I pulled back against the bladder neck. I then make a separate stab incision and bring an 18- Macanese Talavera through the anterior bladder wall with a 5 mL balloon. I do a pursestring stitch around the the Talavera catheter as it enters the bladder. I then closed the bladder in 2 layers with 3 and 2-0 Vicryl. A Arturo-Means drain is brought through separate stab incision. The rectus fascias closed with double double 0 PDS. The skin is stapled. The patient's awake and returned recovery room good condition. Blood loss is approximately 300 mL. He'll have a bladder irrigation with the fluid entering through the suprapubic tube and draining to the urethral Talavera. The patient tolerated the procedure well.
[2021-04-08] MEDS: fentaNYL (PF) 50 MCG/ML 2 ML AMP IV ONE ×2 (15:44→16:02)
[2021-04-08] MEDS: DEXTROSE 5%-0.45% NACL 1,000 ML IV SCH ×2 (16:48→22:02)
[2021-04-08] MEDS: SYMBICORT 160-4.5 MCG INHALER INHALATION SCH (20:32)
--- NOTE | 2021-04-08 21:36 | P.PN ---
Progress Note - Text Patient Talavera catheter was clotted off, multiple attempts to irrigate was unsuccessful. I was able to irrigate through the suprapubic tube, but unable to completely irrigate all the clots. At this time an angled sensor was passed through the Talavera catheter. Previous Talavera was removed, Next a 22-Arabic hematuria catheter was passed over the sensor wire into the bladder. I was able to irrigate and obtain approximately 100 mL of clot. Balloon was inflated to 50 mL. At this time the CBI was restarted in the urine was light pink on moderate drip CBI
[2021-04-08] MEDS: ATORVASTATIN 10 MG TAB PO SCH (22:02)
[2021-04-08] MEDS: ONDANSETRON 4 MG/2 ML VIAL IVP PRN (22:02)
[2021-04-08] MEDS: SULFAMETHOX-TMP 800-160MG 1 EACH TAB PO SCH (22:02)
[2021-04-08] MEDS ORDERED: SODIUM CHLORIDE 0.9% IRRIGATIO 3,000 ML IRRIGATION ONE (22:10)
[2021-04-08 22:45] LABS: Basophils % (A) 0 %; Eosinophils # (A) 0.1 k/uL (0-0.7); Eosinophils % (A) 1 %; HCT 32.4 % (39.0-53.0); HGB 10.8 gm/dL (13.0-17.5); Lymphocytes # (A) 0.4 k/uL (1.0-4.8); Lymphocytes % (A) 3 %; MCH 30.5 pg (25.0-35.0); MCHC 33.3 g/dL (31.0-37.0); MCV 91.3 fL (80.0-100.0); Mean Platelet Volume 8.8; Monocytes # (A) 0.8 k/uL (0-1.0); Monocytes % (A) 6 %; Neutrophils # (A) 12.6 k/uL (1.3-7.7); Neutrophils % (A) 90 %; Platelet Count 196 k/uL (150-450); RBC 3.55 m/uL (4.30-5.90); RDW 13.5 % (11.5-15.5)
[2021-04-08 22:58] LABS: African American GFR (CKD) 54 (>60 ml/min/1.73 sqM); Anion Gap 5 mmol/L; Blood Urea Nitrogen 32 mg/dL (9-20); Calcium 8.9 mg/dL (8.4-10.2); Carbon Dioxide 25 mmol/L (22-30); Chloride 105 mmol/L (98-107); Glucose 152 mg/dL (74-99); Non-African American GFR(CKD) 46 (>60 ml/min/1.73 sqM); Potassium 4.4 mmol/L (3.5-5.1); Sodium 135 mmol/L (137-145)
[2021-04-09] MEDS: SODIUM CHLORIDE 0.9% IRRIGATIO 3,000 ML IRRIGATION SCH ×3 (01:59→17:06)
[2021-04-09 05:11] LABS: Basophils % (A) 0 %; Eosinophils % (A) 0 %; HCT 29.9 % (39.0-53.0); HGB 9.7 gm/dL (13.0-17.5); Lymphocytes # (A) 0.6 k/uL (1.0-4.8); Lymphocytes % (A) 6 %; MCH 30.2 pg (25.0-35.0); MCHC 32.5 g/dL (31.0-37.0); MCV 92.9 fL (80.0-100.0); Mean Platelet Volume 9.1; Monocytes # (A) 0.6 k/uL (0-1.0); Monocytes % (A) 7 %; Neutrophils # (A) 7.8 k/uL (1.3-7.7); Neutrophils % (A) 86 %; Platelet Count 176 k/uL (150-450); RBC 3.22 m/uL (4.30-5.90); RDW 13.4 % (11.5-15.5); WBC 9.1 k/uL (3.8-10.6)
[2021-04-09] MEDS: ONDANSETRON 4 MG/2 ML VIAL IVP PRN ×3 (05:14→19:49)
[2021-04-09] MEDS: DEXTROSE 5%-0.45% NACL 1,000 ML IV SCH ×3 (07:18→21:27)
[2021-04-09] MEDS: SYMBICORT 160-4.5 MCG INHALER INHALATION SCH ×2 (07:48→19:45)
--- NOTE | 2021-04-09 09:09 | P.PN ---
Progress Note - Text Catheter was changed overnight, urine light red on moderate rate CBI. nieves irrigated with return of 20 cc of clots. Abdomen soft non, tender A/P S/P robotic simple urine light red on slow rate CBI -Well continue CBI -Irrigate q4 to prevent clot build up -repeat CBC tomorrow
[2021-04-09] MEDS: LOSARTAN-HCTZ 50-12.5 MG 1 EACH TAB PO SCH (09:21)
[2021-04-09] MEDS: SULFAMETHOX-TMP 800-160MG 1 EACH TAB PO SCH ×2 (09:22→21:23)
[2021-04-09] MEDS: LOSARTAN 50 MG TAB PO SCH (09:22)
[2021-04-09] MEDS: LACTATED RINGERS 1,000 ML IV SCH (12:56)
[2021-04-09] MEDS: ATORVASTATIN 10 MG TAB PO SCH (21:23)
[2021-04-10] MEDS: OXYBUTYNIN CHLORIDE 5 MG TAB PO PRN ×2 (00:27→08:43)
[2021-04-10] MEDS: ONDANSETRON 4 MG/2 ML VIAL IVP PRN (05:32)
[2021-04-10] MEDS: SODIUM CHLORIDE 0.9% IRRIGATIO 3,000 ML IRRIGATION SCH ×2 (05:40→23:20)
[2021-04-10] MEDS ORDERED: HYDROcodone/APAP 5-325MG 1 EACH TAB PO PRN (07:35)
[2021-04-10] MEDS: DEXTROSE 5%-0.45% NACL 1,000 ML IV SCH ×2 (08:17→13:38)
[2021-04-10] MEDS: LOSARTAN-HCTZ 50-12.5 MG 1 EACH TAB PO SCH (08:43)
[2021-04-10] MEDS: LOSARTAN 50 MG TAB PO SCH (08:43)
[2021-04-10] MEDS: SULFAMETHOX-TMP 800-160MG 1 EACH TAB PO SCH ×2 (08:43→21:08)
[2021-04-10] MEDS: KETOROLAC 30 MG/ML 1 ML VIAL IVP SCH ×4 (08:45→23:20)
--- NOTE | 2021-04-10 09:29 | P.PN ---
Subjective Progress Note Date: 04/10/21 This is a second postoperative day from a suprapubic prostatectomy for a very large prostate. The oozing from the prostate is about is slowing down. The irrigation is clearing the urine. I irrigated the catheter this morning and there is no problem. I will advance his diet to regular. I will ambulate the patient. Irrigation from probably be stopped tomorrow and hopefully he can be discharged home Thursday or Thursday. Pathology reports. Objective - Vital Signs Vital signs: Vital Signs Temp 99.9 F H 04/10/21 07:48 Pulse 78 04/10/21 07:48 Resp 18 04/10/21 07:48 BP 122/76 04/10/21 07:48 Pulse Ox 100 04/10/21 07:48 Intake & Output 04/09/21 04/10/21 04/10/21 18:59 06:59 18:59 Intake Total 1500 Output Total 68593 1940 2626 Balance -96664 -5282 -3461 Intake: Intake, IV Titration 1500 Amount Dextrose 5%-0.45% NaCl 1, 1500 000 ml @ 50 mls/hr IV . Q20H [facility] Rx#:[id number] Output: Drainage 15 40 Right Lower Abdomen 15 40 Urine 50084 6700 2625 Other: Voiding Method Indwelling Catheter Indwelling Catheter Indwelling Catheter # Bowel Movements 0 - Labs CBC & Chem 7: 04/09/21 03:54 04/08/21 22:36
[2021-04-10] MEDS: SYMBICORT 160-4.5 MCG INHALER INHALATION SCH ×2 (11:13→21:21)
[2021-04-10] MEDS: ATORVASTATIN 10 MG TAB PO SCH (21:07)
[2021-04-11] MEDS: KETOROLAC 30 MG/ML 1 ML VIAL IVP SCH ×2 (05:24→12:16)
[2021-04-11] MEDS: SODIUM CHLORIDE 0.9% IRRIGATIO 3,000 ML IRRIGATION SCH (05:52)
[2021-04-11] MEDS: SYMBICORT 160-4.5 MCG INHALER INHALATION SCH ×2 (07:40→19:01)
[2021-04-11] MEDS: SULFAMETHOX-TMP 800-160MG 1 EACH TAB PO SCH ×2 (08:06→20:20)
[2021-04-11] MEDS: LOSARTAN 50 MG TAB PO SCH (08:06)
[2021-04-11] MEDS: LOSARTAN-HCTZ 50-12.5 MG 1 EACH TAB PO SCH (08:06)
[2021-04-11] MEDS: ACETAMINOPHEN TAB 325 MG TAB PO PRN (08:21)
[2021-04-11] MEDS: ONDANSETRON 4 MG/2 ML VIAL IVP PRN ×3 (09:03→22:47)
[2021-04-11 09:34] LABS: Basophils % (A) 1 %; Eosinophils # (A) 0.4 k/uL (0-0.7); Eosinophils % (A) 5 %; HCT 26.6 % (39.0-53.0); Lymphocytes # (A) 0.9 k/uL (1.0-4.8); Lymphocytes % (A) 12 %; MCH 30.8 pg (25.0-35.0); MCHC 33.7 g/dL (31.0-37.0); MCV 91.4 fL (80.0-100.0); Mean Platelet Volume 9.2; Monocytes # (A) 0.5 k/uL (0-1.0); Monocytes % (A) 6 %; Neutrophils # (A) 5.5 k/uL (1.3-7.7); Neutrophils % (A) 75 %; Platelet Count 159 k/uL (150-450); RBC 2.91 m/uL (4.30-5.90); RDW 13.1 % (11.5-15.5); WBC 7.3 k/uL (3.8-10.6)
[2021-04-11 09:53] LABS: African American GFR (CKD) 35 (>60 ml/min/1.73 sqM); Anion Gap 4 mmol/L; Blood Urea Nitrogen 21 mg/dL (9-20); Calcium 8.4 mg/dL (8.4-10.2); Carbon Dioxide 21 mmol/L (22-30); Chloride 104 mmol/L (98-107); Glucose 124 mg/dL (74-99); Non-African American GFR(CKD) 30 (>60 ml/min/1.73 sqM); Potassium 3.7 mmol/L (3.5-5.1); Sodium 129 mmol/L (137-145)
[2021-04-11] MEDS: DEXTROSE 5%-0.45% NACL 1,000 ML IV SCH (12:23)
--- NOTE | 2021-04-11 12:27 | P.PN ---
Subjective Progress Note Date: 04/11/21 Having Nausea this am, is passing flatus. Pain is controlled, urine was clear on slow rate CBI Objective - Vital Signs Vital signs: Vital Signs Temp 97.8 F 04/11/21 07:50 Pulse 80 04/11/21 08:25 Resp 18 04/11/21 07:50 BP 104/68 04/11/21 07:50 Pulse Ox 92 L 04/11/21 08:25 Intake & Output 04/10/21 04/11/21 04/11/21 18:59 06:59 18:59 Intake Total 540 Output Total 7460 8210 Balance -7749 -8221 Weight 127.596 kg Intake: Oral 540 Output: Drainage 35 10 Right Lower Abdomen 35 10 Urine 7425 8200 Other: Voiding Method Indwelling Catheter Indwelling Catheter Indwelling Catheter - Constitutional General appearance: Present: no acute distress - Gastrointestinal General gastrointestinal: Present: soft. Absent: distended, tenderness - Psychiatric Psychiatric: Present: A&O x's 3 - Labs CBC & Chem 7: 04/11/21 09:17 04/11/21 09:17 Labs: Abnormal Lab Results - Last 24 Hours (Table) 04/11/21 04/11/21 Range/Units 09:17 09:17 RBC 2.91 L (4.30-5.90) m/uL Hgb 9.0 L (13.0-17.5) gm/dL Hct 26.6 L (39.0-53.0) % Lymphocytes # 0.9 L (1.0-4.8) k/uL Sodium 129 L (137-145) mmol/L Carbon Dioxide 21 L (22-30) mmol/L BUN 21 H (9-20) mg/dL Creatinine 2.09 H (0.66-1.25) mg/dL Glucose 124 H (74-99) mg/dL Assessment and Plan Assessment: postoperative day #3 status post simple prostatectomy. Having nausea this morning, Hemoglobin stable, creatinine is 2.1 from 1.46 -D/C Toradol given KAREN -Zofran for nausea -Ambulate -D/C HEALTH INFORMATION ASSISTANT -Slow rate of CBI -repeat labs tomorrow
[2021-04-11] MEDS ORDERED: METOCLOPRAMIDE 5 MG/ML 2 ML VIAL IVP PRN (15:40)
[2021-04-11] MEDS ORDERED: MORPHINE SULFATE 4 MG/ML SYRINGE IVP PRN (15:56)
[2021-04-11] MEDS: ATORVASTATIN 10 MG TAB PO SCH (20:20)
[2021-04-12] MEDS: ACETAMINOPHEN TAB 325 MG TAB PO PRN ×2 (04:56→15:59)
[2021-04-12] MEDS: ONDANSETRON 4 MG/2 ML VIAL IVP PRN ×2 (07:20→21:58)
[2021-04-12] MEDS: SYMBICORT 160-4.5 MCG INHALER INHALATION SCH ×2 (08:09→19:58)
[2021-04-12] MEDS: DEXTROSE 5%-0.45% NACL 1,000 ML IV SCH ×2 (08:32→09:14)
[2021-04-12] MEDS: LOSARTAN-HCTZ 50-12.5 MG 1 EACH TAB PO SCH (08:55)
[2021-04-12] MEDS: LOSARTAN 50 MG TAB PO SCH (08:56)
[2021-04-12] MEDS: SULFAMETHOX-TMP 800-160MG 1 EACH TAB PO SCH ×2 (08:56→19:45)
[2021-04-12 09:37] LABS: African American GFR (CKD) 35 (>60 ml/min/1.73 sqM); Anion Gap 3 mmol/L; Blood Urea Nitrogen 21 mg/dL (9-20); Calcium 8.3 mg/dL (8.4-10.2); Carbon Dioxide 25 mmol/L (22-30); Chloride 104 mmol/L (98-107); Glucose 118 mg/dL (74-99); Non-African American GFR(CKD) 30 (>60 ml/min/1.73 sqM); Potassium 4.2 mmol/L (3.5-5.1); Sodium 132 mmol/L (137-145)
--- NOTE | 2021-04-12 11:49 | P.PN ---
Subjective Nausea improved, passing flatus. Pain is controlled, urine was clear on slow rate. Denies any abdominal pain or fever/chills Objective - Vital Signs Vital signs: Vital Signs Temp 98.4 F 04/12/21 07:36 Pulse 79 04/12/21 07:36 Resp 16 04/12/21 07:36 BP 110/70 04/12/21 07:36 Pulse Ox 98 04/12/21 07:36 Intake & Output 04/11/21 04/12/21 04/12/21 18:59 06:59 18:59 Intake Total 1200 540 Output Total 1650 8265 Balance -0 7007 540 Weight 127.596 kg Intake: Intake, IV Titration 1200 Amount Dextrose 5%-0.45% NaCl 1, 1200 000 ml @ 100 mls/hr IV . Q10H [facility] Rx#:[id number] Oral 540 Output: Drainage 15 Right Lower Abdomen 15 Urine 1650 8250 Other: Voiding Method Indwelling Catheter Indwelling Catheter Indwelling Catheter - Constitutional General appearance: Present: no acute distress - Gastrointestinal General gastrointestinal: Present: soft. Absent: distended, tenderness - Labs CBC & Chem 7: 04/11/21 09:17 04/12/21 08:57 Labs: Abnormal Lab Results - Last 24 Hours (Table) 04/12/21 Range/Units 08:57 Sodium 132 L (137-145) mmol/L BUN 21 H (9-20) mg/dL Creatinine 2.09 H (0.66-1.25) mg/dL Glucose 118 H (74-99) mg/dL Calcium 8.3 L (8.4-10.2) mg/dL Assessment and Plan Assessment: postoperative day #4 status post simple prostatectomy. Having nausea this morning, Hemoglobin stable, creatinine is 2.06 from baseline 1.46 -D/C Toradol given KAREN -Zofran for nausea -Ambulate -turn off of CBI -repeat labs tomorrow
[2021-04-12 12:40] VITALS: BMI 39.2
--- NOTE | 2021-04-12 16:45 | CDI ---
Documentation Clarification Form Date: 04/12/2021 04:21:00 PM From: Trish Chan RN, CCDS Admit Date: 04/08/2021 10:30:00 AM Patient Name: Manny Salmeron Visit Number: [id number] Discharge Date: ATTENTION: The Clinical Documentation Specialists (CDI) and [facility] Coding Staff appreciate your assistance in clarifying documentation. Please respond to the clarification below the line at the bottom and electronically sign. The CDI & [facility] Coding staff will review the response and follow-up if needed. Please note: Queries are made part of the Legal Health Record. If you have any questions, please contact the author of this message via ITS. Dr. Hector Gordon Your patient has an abnormal lab value on 04/08/21: BUN 32, Creatinine 1.46, GFR 46. Please clarify if there is an additional diagnosis and/or clinical significance related to this value. History/Risk Factors: Colon cancer, COPD, DVT, PE, Hypertension Clinical indicators: 75-year-old male diagnosed with BPH due to very large prostate with urine retention 04/11 attending progress notes: creatinine is 2.1 from 1.46 D/C Toradol given KAREN 04/09 BUN 21, CR 2.09 GFR 30 Treatment: 04/08 Suprapubic Prostatectomy (CBI) Bladder irrigation per orders Monitor CBC, Lytes, BUN, Cr Is there an additional diagnosis and/or clinical significance related to the above lab result/information? [ ] Acute on chronic renal failure stage 3 [ ] Acute on chronic renal failure stage 3b [ ] Other, please specify [ ] Unable to determine (Template Last Revised: March 2020) Acute on chronic renal failure MTDD
[2021-04-12] MEDS: ATORVASTATIN 10 MG TAB PO SCH (19:45)
[2021-04-13 01:39] VITALS: RESP 16
[2021-04-13] MEDS: DEXTROSE 5%-0.45% NACL 1,000 ML IV SCH (04:44)
[2021-04-13] MEDS: SYMBICORT 160-4.5 MCG INHALER INHALATION SCH (07:53)
[2021-04-13] MEDS: SULFAMETHOX-TMP 800-160MG 1 EACH TAB PO SCH (07:54)
[2021-04-13] MEDS: LOSARTAN-HCTZ 50-12.5 MG 1 EACH TAB PO SCH (07:54)
[2021-04-13] MEDS: LOSARTAN 50 MG TAB PO SCH (07:54)
[2021-04-13 08:18] VITALS: BP 125/74; PULSE 71; TEMP 98.2
--- NOTE | 2021-04-13 08:44 | P.PN ---
Subjective No acute overnight events, nausea resolved. Talavera draining blood-tinged urine Objective - Vital Signs Vital signs: Vital Signs Temp 98.2 F 04/13/21 08:00 Pulse 71 04/13/21 08:00 Resp 16 04/13/21 08:00 BP 125/74 04/13/21 08:00 Pulse Ox 94 L 04/13/21 08:00 Intake & Output 04/12/21 04/13/21 04/13/21 18:59 06:59 18:59 Intake Total 1080 1080 Output Total 2710 Balance 1080 -1630 Weight 127.596 kg Intake: Oral 1080 1080 Output: Drainage 10 Right Lower Abdomen 10 Urine 2700 Other: Voiding Method Indwelling Catheter Indwelling Catheter - Constitutional General appearance: Present: no acute distress - Gastrointestinal General gastrointestinal: Present: soft. Absent: distended, tenderness - Psychiatric Psychiatric: Present: A&O x's 3 - Labs CBC & Chem 7: 04/11/21 09:17 04/12/21 08:57 Labs: Abnormal Lab Results - Last 24 Hours (Table) 04/12/21 Range/Units 08:57 Sodium 132 L (137-145) mmol/L BUN 21 H (9-20) mg/dL Creatinine 2.09 H (0.66-1.25) mg/dL Glucose 118 H (74-99) mg/dL Calcium 8.3 L (8.4-10.2) mg/dL Assessment and Plan Assessment: postoperative day #5 status post simple prostatectomy. creatinine is 2.06 from baseline 1.46 -D/C Toradol given KAREN -Ambulate -We'll remove Talavera, if output from HUSSEIN does not increase we'll remove HUSSEIN. -Repeat BMP, if stable will discharge home with the suprapubic catheter
[2021-04-13 08:59] LABS: African American GFR (CKD) 41.7 (60.0-200.0); BUN/Creat Ratio 9.83 Ratio (12.00-20.00); Blood Urea Nitrogen 17.7 mg/dL (9.0-27.0); Calcium 8.3 mg/dL (8.7-10.3); Potassium 4.2 mmol/L (3.5-5.5)
--- NOTE | 2021-04-13 09:30 | P.DS ---
Providers Date of admission: 04/08/21 10:30 Attending physician: Cecil Paniagua Primary care physician: Stated None Hospital Course: 75-year-old male with history of chronic urinary retention. Secondary to a large prostate. He underwent a open simple prostatectomy on April [address] Paniagua . Please see op note dated the for surgery detail. He was admitted to the hospital postoperatively. On postoperative day #0 his catheter was occluded and required changing the catheter over the wire. He was managed with CBI post operatively, CBI was turned off on April 12, and urine remained clot free. Catheter was removed on April 13, and prior to discharge repeat drain was also removed. He was discharged home with a suprapubic catheter. He will follow-up in one week with Dr. Whatley for suprapubic Catheter removal. Of note his creatinine was elevated to 2.09 on postop day #3 secondary to nausea and vomiting , his creatinine trended back down to 1.8 with IV hydration. At time of discharge was tolerating a diet, ambulating, and pain was well-controlled Plan - Discharge Summary Discharge Rx Participant: Yes New Discharge Prescriptions: New Cephalexin [Keflex] 500 mg PO Q12HR #12 cap HYDROcodone/APAP 5-325MG [[place] 5-325] 1 tab PO Q4HR PRN 3 Days #18 tab PRN Reason: Pain No Action Tamsulosin [Flomax] 0.4 mg PO DAILY Finasteride [Proscar] 5 mg PO QAM traMADol HCL [Ultram] 50 mg PO Q6H PRN PRN Reason: Pain Olmesartan/Hydrochlorothiazide [Benicar Hct 40-25 mg Tablet] 1 each PO QAM Mometasone/Formoterol [Dulera 200 Mcg-5 Mcg Inhaler] 2 puff INHALATION BID Atorvastatin [Lipitor] 10 mg PO HS Cholecalciferol [Vitamin D3 (25 Mcg = 1000 Iu)] 25 mcg PO DAILY Albuterol Nebulized [Ventolin Nebulized] 2.5 mg INHALATION DIRECTED PRN PRN Reason: sob Acetaminophen/Diphenhydramine [Tylenol PM 500-25mg] 2 tab PO HS PRN PRN Reason: sleep Discharge Medication List Finasteride [Proscar] 5 mg PO QAM 10/03/14 [History] Tamsulosin [Flomax] 0.4 mg PO DAILY 10/03/14 [History] traMADol HCL [Ultram] 50 mg PO Q6H PRN 10/03/14 [History] Mometasone/Formoterol [Dulera 200 Mcg-5 Mcg Inhaler] 2 puff INHALATION BID 04/25/19 [History] Olmesartan/Hydrochlorothiazide [Benicar Hct 40-25 mg Tablet] 1 each PO QAM 04/25/19 [History] Atorvastatin [Lipitor] 10 mg PO HS 11/30/20 [History] Cholecalciferol [Vitamin D3 (25 Mcg = 1000 Iu)] 25 mcg PO DAILY 11/30/20 [History] Acetaminophen/Diphenhydramine [Tylenol PM 500-25mg] 2 tab PO HS PRN 01/01/21 [History] Albuterol Nebulized [Ventolin Nebulized] 2.5 mg INHALATION DIRECTED PRN 01/01/21 [History] Cephalexin [Keflex] 500 mg PO Q12HR #12 cap 04/13/21 [Rx] HYDROcodone/APAP 5-325MG [[place] 5-325] 1 tab PO Q4HR PRN 3 Days #18 tab 04/13/21 [Rx] Activity/Diet/Wound Care/Special Instructions: Increase fluid intake It is normal to see blood in the urine No heavy lifting or straining for 4 weeks You can discontinue taking the Flomax and the Proscar Discharge Disposition: HOME SELF-CARE
== END 2021-04-13 13:51 | disposition home or self-care (01) | DRG 717 ==
LOC: 2ORMAIN 10:30 → EDSTATUS 12:00 → 4SSUR 15:25
PROVIDERS: ADMIT Urology; ATTEND Urology
PROC: 0VB00ZZ Excision of Prostate, Open Approach (ICD-10-PCS; principal; 2021-04-08 12:00)
DX: N40.1 Benign prostatic hyperplasia with lower urinary tract symptoms (principal); N17.9 Acute kidney failure, unspecified; R33.9 Retention of urine, unspecified; E78.5 Hyperlipidemia, unspecified; H91.90 Unspecified hearing loss, unspecified ear; I12.9 Hypertensive chronic kidney disease with stage 1 through stage 4 chronic kidney disease, or unspecified chronic kidney disease; N18.9 Chronic kidney disease, unspecified; J44.9 Chronic obstructive pulmonary disease, unspecified; R33.8 Other retention of urine; E66.9 Obesity, unspecified; Z68.39 Body mass index [BMI] 39.0-39.9, adult; Z20.822 Contact with and (suspected) exposure to COVID-19; Z79.51 Long term (current) use of inhaled steroids; Z79.899 Other long term (current) drug therapy; Z80.0 Family history of malignant neoplasm of digestive organs; Z82.49 Family history of ischemic heart disease and other diseases of the circulatory system; Z85.038 Personal history of other malignant neoplasm of large intestine; Z86.711 Personal history of pulmonary embolism; Z87.891 Personal history of nicotine dependence; Z82.61 Family history of arthritis; Z86.010 Personal history of colon polyps; Z98.890 Other specified postprocedural states; Z86.718 Personal history of other venous thrombosis and embolism; Z87.01 Personal history of pneumonia (recurrent)
CPT/HCPCS: 80048; 85025; 87635; 88307; 94640

== ENCOUNTER → 2021-12-20 | Outpatient (CLI) | payer MEDICARE ==
--- NOTE | 2021-12-20 13:27 | CT ---
EXAMINATION TYPE: CT right knee - [facility] Protocol DATE OF EXAM: 12/20/2021 COMPARISON: none HISTORY: M25.561 PAIN IN RIGHT KNEE Surgical planning CT of the right lower extremity was performed from the right hip through the ankle. FINDINGS: Severe degenerative change about the knee. Extensive spur formation noted. Tricompartment degenerativ e narrowing. Mild degenerative change about the right hip and right ankle. IMPRESSION: Preoperative planning CT of the right knee as noted.
== END | disposition home or self-care (01) ==
LOC: RADCTMAIN 12:47
PROVIDERS: ATTEND Orthopaedic Surgery
DX: Z01.818 Encounter for other preprocedural examination (principal); M25.561 Pain in right knee

== ENCOUNTER → 2021-12-30 | Outpatient (CLI) | payer MEDICARE ==
[2021-12-30 09:32] LABS: INR 0.9 (<1.2); Partial Thromboplastin Time 23.6 sec (22.0-30.0)
[2021-12-30 09:37] LABS: Appearance,Urine Clear (Clear); Bilirubin,Urine Negative (Negative); Blood,Urine Negative (Negative); Color,Urine Light Yellow; Glucose,Urine (UA) Negative (Negative); Hyaline Casts,Urine 1 /lpf (0-2); Ketones,Urine Negative (Negative); Leukocyte Esterase,Urine Moderate (Negative); Mucus,Urine Rare /hpf; Nitrite,Urine Negative (Negative); PH, Urine 5.5 (5.0-8.0); Protein,Urine Negative (Negative); RBC,Urine 3 /hpf (0-5); Specific Gravity,Urine 1.018 (1.001-1.035); Squamous Epithelial Cell,Urine 2 /hpf (0-4); Urobilinogen,Urine <2.0 mg/dL (<2.0); WBC,Urine 41 /hpf (0-5)
[2021-12-30 14:19] LABS: HCT 43.1 % (39.6-50.0); HGB 13.7 g/dL (13.0-17.0); MCH 29.3 pg (27.0-32.0); MCHC 31.8 g/dL (32.0-37.0); MCV 92.1 fL (80.0-97.0); Mean Platelet Volume 11.2 fL (9.5-12.2); NRBC Per 100 WBC 0 /100 WBCS (0.0-0.0); Platelet Count 202 X 10*3/uL (140-440); RBC 4.68 X 10*6/uL (4.40-5.60); WBC 5.61 X 10*3/uL (4.50-10.00)
[2021-12-30 15:03] LABS: African American GFR (CKD) 58.7 (60.0-200.0); Albumin 4.3 g/dL (3.8-4.9); Albumin/Globulin Ratio 2.03 (1.60-3.17); Anion Gap 8.8 mmol/L (10.00-18.00); BUN/Creat Ratio 31.93 Ratio (12.00-20.00); Blood Urea Nitrogen 43.1 mg/dL (9.0-27.0); Calcium 9.8 mg/dL (8.7-10.3); Carbon Dioxide 26.6 mmol/L (20.0-27.5); Globulin 2.1 g/dL (1.6-3.3); Non-African American GFR(CKD) 50.6 (60.0-200.0); Potassium 4.7 mmol/L (3.5-5.5); Total Bilirubin 0.3 mg/dL (0.30-1.20); Total Protein 6.3 g/dL (6.2-8.2)
== END | disposition home or self-care (01) ==
LOC: LABPAT 08:34
PROVIDERS: ATTEND Orthopaedic Surgery
DX: Z01.812 Encounter for preprocedural laboratory examination (principal); M17.11 Unilateral primary osteoarthritis, right knee
CPT/HCPCS: 80053; 81001; 85027; 85610; 85730; 87070; 93005

== ENCOUNTER 2022-01-28 05:39 | Day surgery (SDC) | payer MEDICARE ==
[2022-01-27 08:50] VITALS: BMI 44.4
[~2022-01-28 05:39] MED LIST changes: +ACETAMINOPHEN TAB 500 MG TAB PO PRN; -AMPICILLIN 2,000 MG in SODIUM CHLORIDE 0.9% 100 ML IVPB PRN; +GABAPENTIN 300 MG CAP PO PRN; -GENTAMICIN 140 MG in SODIUM CHLORIDE 0.9% 100 ML IVPB PRN; -LIDOCAINE 1% (10MG/ML) FOR IV START INTRADERMA PRN; +MELOXICAM 7.5 MG TAB PO PRN; -ONDANSETRON 4 MG/2 ML VIAL IVP ONE; +TRANEXAMIC ACID IN NACL,ISO-OS 1,000 MG in SALINE 1 100ML.BAG IVPB PRN; +ceFAZolin 3 GM in SODIUM CHLORIDE 0.9% 100 ML IVPB PRN
[2022-01-28] MEDS ORDERED: ONDANSETRON 4 MG/2 ML VIAL ONE (06:09)
[2022-01-28] MEDS ORDERED: ONDANSETRON 4 MG/2 ML VIAL IVP ONE (06:19)
[2022-01-28] MEDS ORDERED: HYDROmorphone 0.5 MG/0.5 ML SYRINGE IVP PRN ×4 (06:19→09:42)
[2022-01-28] MEDS ORDERED: LACTATED RINGERS 1,000 ML IV SCH (06:19)
[2022-01-28] MEDS ORDERED: DEXAMETHASONE SOD PHOSPHATE 4 MG/ML 1 ML VIAL IV ONE (06:19)
[2022-01-28] MEDS ORDERED: fentaNYL (PF) 50 MCG/1 ML VIAL IVP ONE (06:41)
[2022-01-28] MEDS ORDERED: MIDAZOLAM 2 MG/2 ML VIAL IVP ONE (06:41)
[2022-01-28] MEDS ORDERED: SODIUM CHLORIDE 0.9% (PF) 10 ML VIAL ONE (07:10)
[2022-01-28] MEDS ORDERED: TRANEXAMIC ACID IN NACL,ISO-OS 1,000 MG/100 ML BAG ONE (07:10)
[2022-01-28] MEDS ORDERED: PROPOFOL 10 MG/ML 20 ML VIAL IV ONE (07:10)
[2022-01-28] MEDS ORDERED: HYDROmorphone (PF) 1 MG/ML ONE (07:10)
[2022-01-28] MEDS ORDERED: fentaNYL (PF) 50 MCG/ML 2 ML AMP ONE (07:10)
[2022-01-28] MEDS ORDERED: ROCURONIUM 10 MG/ML (5 ML VIAL) IV ONE (07:10)
[2022-01-28] MEDS ORDERED: LIDOCAINE 2% INJ 20 MG/ML (2 ML VIAL) ONE (07:10)
[2022-01-28] MEDS ORDERED: MIDAZOLAM 2 MG/2 ML VIAL ONE (07:10)
[2022-01-28] MEDS ORDERED: ROPIVACAINE 5 MG/ML 30 ML VIAL ONE (07:10)
[2022-01-28] MEDS ORDERED: SUCCINYLCHOLINE CHLORIDE 200 MG/10 ML VIAL IV ONE (07:10)
[2022-01-28] MEDS ORDERED: ceFAZolin 1,000 MG in SODIUM CHLORIDE 0.9% 1,000 ML IRRIGATION ONE (07:15)
[2022-01-28] MEDS ORDERED: LACTATED RINGERS 1,000 ML IV ONE (08:40)
[2022-01-28] MEDS ORDERED: NALOXONE 0.4 MG/ML 1 ML VIAL IV PRN (09:42)
[2022-01-28] MEDS ORDERED: ONDANSETRON 4 MG/2 ML VIAL IVP PRN (09:42)
[2022-01-28] MEDS ORDERED: HYDROcodone/APAP 7.5-325MG 1 EACH TAB PO PRN ×2 (09:43)
[2022-01-28] MEDS ORDERED: SODIUM CHLORIDE 0.9% 1,000 ML IV SCH (09:45)
[2022-01-28 09:46] VITALS: TEMP 96.8
[2022-01-28] MEDS ORDERED: ROPIVACAINE 1,100 MG, SODIUM CHLORIDE 0.9% 500 ML 330 ML, EMPTY PAIN BALL 1 EACH MISCELLANE PRN ×2 (09:49)
--- NOTE | 2022-01-28 09:54 | P.OP ---
Date of Procedure: 01/28/22 Preoperative Diagnosis: Severe Osteoarthritis right knee Postoperative Diagnosis: Severe osteoarthritis right knee Procedure(s) Performed: Robotic-assisted right total knee arthroplasty Implants: 1. Kimmie triathlon cruciate retaining femoral component size 7 right 2. Hartwick triathlon total knee universal tibial baseplate size 7 3. Kimmie triathlon next 3 tibial bearing insertCS, size 7, 10 mm 4. Kimmie triathlon next 3 asymmetric patella, size 40, 11 mm 5. All components were cemented using Palacos R bone cement 6. The articulation is metal on polyethylene Anesthesia: JESENIA Surgeon: Niles Rizvi Weight Reducing Technician #1: Elaina Freire Estimated Blood Loss (ml): 50 Pathology: other (Bone and cartilage) Condition: stable Disposition: PACU Indications for Procedure: This is a 70-year-old female with a history of right knee osteoarthritis. The patient's knee is end-stage, and conservative management has failed. The operation of robotic-assisted knee replacement has been discussed at length in the office, as well as potential risks and complications. These are inclusive of, but not limited to: Infection, bleeding, scarring, discomfort, stiffness, blood vessel and nerve damage, need for further surgery, failure to relieve symptoms, persistence, recurrence, or worsening of problems, loosening, dislocation, wear, blood clot, pulmonary embolism, , gait dysfunction, stiffness, and other risks as discussed in the office. Patient elects to proceed and the consent form has been signed. Operative Findings: The operative findings are consistent with severe osteoarthritis of the right knee Description of Procedure: Patient was seen in the preoperative area and the consent was reviewed and the operative site was marked with a skin marker. The patient verified the procedure and the operative site. An adductor canal pain catheter and an IPACK block were placed by anesthesia in the preoperative area. The patient was then brought to the operating room and positioned on the operating room table in the supine position. Preoperative antibiotics and a gram of transexamic acid were given intravenously. A spinal anesthetic was administered by the anesthesia department. Care was taken to make sure that all pressure points were adequately padded. A tourniquet was placed on the upper thigh and the lower extremity was prepped with ChloraPrep and draped in usual sterile fashion. A universal timeout was then performed which confirmed the patient's name, surgical site, ALLERGIES, and consent. The lower extremity was then exsanguinated and tourniquet was inflated to 300 mmHg. A standard anterior midline approach to the knee was performed. The skin and subcutaneous tissue were sharply dissected down to the patellar tendon. A medial parapatellar arthrotomy was then performed. The knee was then extended, the patellar was everted, and the knee was flexed. The infra-patellar fat pad was removed in order to enhance exposure. The anterior horns of both menisci were excised, and a release was performed to the posterior medial aspect of the knee. On gross visual inspection, there was complete loss of articular cartilage in the medial and patellofemoral joint spaces. There was also significant cartilage damage in the lateral compartment. There were multiple periarticular osteophytes globally about the knee. Next, the arrays were placed in the distal femur and proximal tibia for the Maikel robot. Then the hip center was located and followed by registering the appropriate points as guided by the Maikel robot. After the points were all registered, the knee was taken through range of motion and the varus/valgus, extension/flexion gaps were registered. After the appropriate cuts were determined, they were performed using the robotic clinical arm and a saw blade. The excess bone was then removed. Any remaining bone and osteophytes were removed from the femur and tibia with a Ronguer. A curved osteotome was then used to remove any posterior osteophytes from the distal femur. The femoral trial was placed. The tibial trial was placed with the appropriate- sized insert. The knee was able to fully extend and flex to 130 and was stable throughout all range of motion. The flexion and extension gap numbers were then registered on the computer and found to be anatomic. The knee was then extended and the patella was everted. Patella was then measured, and then using an osteotomy guide, the patella was cut at the appropriate level. The patellar component was sized. The patellar drill guide was placed and the patella was drilled. The patella trial was then placed. The knee was then taken through range of motion with the patella trial and the patella tracked normally using the no thumbs technique. The patella trial was then removed. The knee was then flexed and lug holes were drilled through the femoral trial and the femoral trial was then removed. The tibial was then re-exposed, and the tibial broach guide was then pinned in place after it was set for the appropriate rotation to allow for the most coverage without overhang. The tibia was then reamed and broached. The cut surfaces of bone were then irrigated with pulsatile lavage. The knee was also irrigated with Irrisept solution. The components were then opened, the cement was mixed. Cement was placed on the backside of the femoral, tibial, and patellar components. Cement was then applied to the tibial surface and pressurized into the surface using finger pressurization technique. The tibial component was then applied and excess cement was removed after it was impacted securely noted to be flush with the cut surface. In similar fashion, the cement was applied to the cut femoral surface, pressurized and using finger pressurization the component was impacted in place. Excess cement was removed. The polyethylene spacer was then implanted and locked into position. Patellar component was then applied in a similar technique and the patellar clamp was used to hold patella in place while the cement hardened. The knee was held in full extension while the cement hardened. Once the cement had fully hardened, the knee was reinspected. Any other cement extrusion was removed the final range of motion testing showed range of motion from 0-130 with excellent stability, both medial and laterally and appropriate alignment of the leg. Patella tracked normally[default value] After the cemented hardened, the tourniquet was released and hemostasis was obtained. A second gram of transexamic acid was given intravenously. The knee was again irrigated. The knee was again taken through range of motion and found to be stable throughout all range of motion of 0-130, and the patella tracked normally. The fascia was then closed with 0 Vicryl followed by #2 strata fix suture. The subcutaneous tissue was closed with 3-0 Vicryl and 3-0 strata fix. Exofin glue was used for the skin and placed with the knee in flexion. After the glue had dried, and Optafoam silver impregnated dressing was applied. A lightly compressive dressing was applied using web roll and Moe wrap. Patient was then transferred to the stretcher and taken to recovery room in stable condition. Sponge and needle counts were correct. The classroom assistant TONE Calderon was required due the complexity surgery and the need for a skilled assistant professor surgical technology. She assisted in positioning, draping, retraction, and closure of the wound.
--- NOTE | 2022-01-28 10:19 | XR ---
EXAMINATION TYPE: XR knee limited RT DATE OF EXAM: 01/28/2022 CLINICAL HISTORY: Right knee pain and arthritis status post total knee replacement. TECHNIQUE: Portable AP and crosstable lateral views of the right knee are obtained immediately posto peratively. COMPARISON: CT right knee December 20, 2021 FINDINGS: Metallic hardware from total right knee arthroplasty is seen and appears satisfactory in a lignment and position. There is evidence of recent surgery with diffuse subcutaneous gas and soft ti ssue swelling noted. IMPRESSION: METALLIC HARDWARE FROM TOTAL RIGHT KNEE ARTHROPLASTY IS SATISFACTORY IN ALIGNMENT.
[2022-01-28 10:38] VITALS: RESP 18
--- NOTE | 2022-01-28 10:49 | P.ANPRN ---
Procedure Note - Anesthesia - Nerve Block Performed Right Adductor Canal Infusion Time Out Performed: Yes (640) Date of Procedure: 01/28/22 Procedure Start Time: 06:41 Procedure Stop Time: 06:47 Location of Patient: PreOp Indication: Acute Post-Operative Pain, Requested by Surgeon Specifically requested for management of pain by DrLise: Niles Rizvi Sedation Type: Sedate with meaningful contact maintained Preparation: Sterile Prep, Sterile Dressing Position: Supine Catheter Depth at Skin (cm): 10 Catheter: Indwelling Needle Types: Pajunk Needle Gauge: 18 Ultrasound used to visualize needle placement: Yes Ultrasound used to observe medication spread: Yes Injectate: 0.5% Ropivacaine (see comment for volume) (15cc + 5cc nacl pf) Blood Aspirated: No Pain Paresthesia on Injection Noted: No Resistance on Injection: Normal Image Stored and Saved: Yes Events: Uneventful and Well Tolerated
--- NOTE | 2022-01-28 10:51 | P.ANPRN ---
Procedure Note - Anesthesia - Nerve Block Performed Right iPack Single Time Out Performed: Yes (640) Date of Procedure: 01/28/22 Procedure Start Time: 06:48 Procedure Stop Time: 06:51 Location of Patient: PreOp Indication: Acute Post-Operative Pain, Requested by Surgeon Specifically requested for management of pain by DrLise: Niles Rizvi Sedation Type: Sedate with meaningful contact maintained Preparation: Sterile Prep Position: Supine Catheter: None Needle Types: Pajunk Needle Gauge: 21 Ultrasound used to visualize needle placement: Yes Ultrasound used to observe medication spread: Yes Injectate: 0.5% Ropivacaine (see comment for volume) (15cc + 5cc nacl pf) Blood Aspirated: No Pain Paresthesia on Injection Noted: No Resistance on Injection: Normal Image Stored and Saved: Yes Events: Uneventful and Well Tolerated
[2022-01-28] MEDS ORDERED: ceFAZolin 3 GM in SODIUM CHLORIDE 0.9% 100 ML IVPB SCH (11:00)
[2022-01-28 13:26] VITALS: BP 106/66; PULSE 78
== END 2022-01-28 14:03 | disposition home health service (06) ==
LOC: OR 05:39
PROVIDERS: ATTEND Orthopaedic Surgery
DX: M17.11 Unilateral primary osteoarthritis, right knee (principal); G89.18 Other acute postprocedural pain; I10 Essential (primary) hypertension; E78.5 Hyperlipidemia, unspecified; F10.90 Alcohol use, unspecified, uncomplicated; N28.9 Disorder of kidney and ureter, unspecified; Z87.891 Personal history of nicotine dependence; Z98.890 Other specified postprocedural states; Z82.49 Family history of ischemic heart disease and other diseases of the circulatory system; Z90.49 Acquired absence of other specified parts of digestive tract; Z90.79 Acquired absence of other genital organ(s); Z79.1 Long term (current) use of non-steroidal anti-inflammatories (NSAID); Z79.82 Long term (current) use of aspirin; Z79.51 Long term (current) use of inhaled steroids; Z79.899 Other long term (current) drug therapy; Z86.718 Personal history of other venous thrombosis and embolism; Z86.711 Personal history of pulmonary embolism
CPT/HCPCS: 27447; 64999; 64448; 97530; 97161; 76942; 73560; C1713; C1776; C1751; J2250; J0330; J1100; J0690 ×2; J2405; J3010 ×2; J1170; J2795; J2704; J2001

== ENCOUNTER 2023-05-28 09:35 | Day surgery (SDC) | payer MEDICARE ==
[2023-05-27 09:27] VITALS: BMI 48.7
--- NOTE | 2023-05-28 07:48 | P.GSHP ---
History of Present Illness H&P Date: 05/28/23 CHIEF COMPLAINT: Colon screen HISTORY OF PRESENT ILLNESS: The patient is a 77-year-old male who presents for colon screen. Lower endoscopy was offered for further evaluation and management. PAST MEDICAL HISTORY: Please see list. PAST SURGICAL HISTORY: Please see list. MEDICATIONS: Please see list. ALLERGIES: Please see list. SOCIAL HISTORY: No illicit drug use FAMILY HISTORY: No reports of Crohn disease or ulcerative colitis. REVIEW OF ORGAN SYSTEMS: CONSTITUTIONAL: No reports of fevers or chills. PHYSICAL EXAM: VITAL SIGNS: Stable GENERAL: Well-developed pleasant in no acute distress. HEENT: No scleral icterus. Extraocular movements grossly intact. Moist buccal mucosa. NECK: Supple without lymphadenopathy. CHEST: Unlabored respirations. Equal bilateral excursions. CARDIOVASCULAR: Regular rate and rhythm. Distal 2+ pulses. ABDOMEN: Soft, nontender, nondistended. MUSCULOSKELETAL: No clubbing, cyanosis, or edema. ASSESSMENT: 1. Colon screen. PLAN: 1. Recommend proceeding with a lower endoscopy Past Medical History Past Medical History: Cancer, COPD, Deep Vein Thrombosis (DVT), Hearing Disorder / Deafness, Hyperlipidemia, Hypertension, Osteoarthritis (OA), Pneumonia, Pulmonary Embolus (PE) Additional Past Medical History / Comment(s): hx POLYPS. anemia, COLON CANCER History of Any Multi-Drug Resistant Organisms: None Reported Past Surgical History: Appendectomy, Bowel Resection, Cholecystectomy, Joint Replacement, Orthopedic Surgery Additional Past Surgical History / Comment(s): COLONOSCOPY W/POLYPECTOMY,BONE TAKEN FROM RT HIP AND INSERTED INTO RT ANKLE, BOWEL RESECTION R/T COLON CANCER, RT TKA, Past Anesthesia/Blood Transfusion Reactions: No Reported Reaction Additional Past Anesthesia/Blood Transfusion Reaction / Comment(s): had ruptured appendix in 70's-"almost lost him" per spouse, unsure if due to anesthesia or the ruptured appy. Smoking Status: Former smoker - Past Family History Son(s) Family Medical History: Deep Vein Thrombosis (DVT) Brother(s) Family Medical History: Cancer Daughter(s) Family Medical History: Cancer Father Family Medical History: Cancer Additional Family Medical History / Comment(s): HAD COLON CANCER. Mother Family Medical History: Hypertension, Rheumatoid Arthritis (RA) Additional Family Medical History / Comment(s): STILL ALIVE LIVES AT [facility] Medications and Allergies Home Medications Medication Instructions Recorded Confirmed Type traMADol HCL [Ultram] 50 mg PO Q6H PRN 10/03/14 05/27/23 History Olmesartan/Hydrochlorothiazide 1 each PO QAM 04/25/19 05/27/23 History [Benicar Hct 40-25 mg Tablet] Atorvastatin [Lipitor] 20 mg PO HS 11/30/20 05/27/23 History Cholecalciferol [Vitamin D3 (25 25 mcg PO DAILY 11/30/20 05/27/23 History Mcg = 1000 Iu)] Albuterol Nebulized [Ventolin 2.5 mg INHALATION DIRECTED PRN 01/01/21 05/27/23 History Nebulized] Aspirin 81 mg PO DAILY 01/27/22 05/27/23 History amLODIPine BESYLATE 5 mg PO DAILY 01/27/22 05/27/23 History Fluticasone/Umeclidin/Vilanter 1 puff INHALATION DAILY 05/27/23 05/27/23 History [Treleross Ellipta 200-62.5-25] Allergies Allergy/AdvReac Type Severity Reaction Status Date / Time No Known Allergies Allergy Verified 05/27/23 08:38
[~2023-05-28 09:35] MED LIST changes: -ACETAMINOPHEN TAB 500 MG TAB PO PRN; -GABAPENTIN 300 MG CAP PO PRN; +LACTATED RINGERS 1,000 ML IV SCH; +LIDOCAINE 1% (10MG/ML) FOR IV START INTRADERMA PRN; -MELOXICAM 7.5 MG TAB PO PRN; -TRANEXAMIC ACID IN NACL,ISO-OS 1,000 MG in SALINE 1 100ML.BAG IVPB PRN; -ceFAZolin 3 GM in SODIUM CHLORIDE 0.9% 100 ML IVPB PRN
[2023-05-28] MEDS: LACTATED RINGERS 1,000 ML IV ONE (10:00)
[2023-05-28 10:50] VITALS: TEMP 97.3
[2023-05-28] MEDS ORDERED: PROPOFOL 10 MG/ML 20 ML VIAL IV ONE (11:09)
[2023-05-28] MEDS ORDERED: LIDOCAINE 1% INJ 10MG/ML (20 ML MDV) ONE (11:09)
--- NOTE | 2023-05-28 11:35 | P.PCN ---
Date of Procedure: 05/28/23 Description of Procedure: PREOPERATIVE DIAGNOSIS: History of colon cancer Status post right colectomy Colon cancer surveillance POSTOPERATIVE DIAGNOSIS: Transverse colon adenoma Diverticulosis, scattered. OPERATION: Colonoscopy to the ileocolic anastomosis SURGEON: So Pastor MD. ANESTHESIA: MAC. INDICATIONS: The patient is a 77-year-old male who presents for colonoscopy due to colon cancer diagnosis 2020. Benefits and risks were described and informed consent was obtained. DESCRIPTION OF PROCEDURE: The patient had undergone GoLytely prep. The patient had been brought into the operating room and laid in the left lateral decubitus position. After adequate intravenous sedation, the rectum was examined with 2% lidocaine jelly. External hemorrhoids were encountered. The rectal tone was within normal limits. No lesions were palpated in the rectal vault. An Olympus colonoscope was advanced until the cecum, ileocecal valve and appendiceal orifice were clearly viewed. The prep was poor. Moderate irrigation was used to identify polyps along the colonic pereira. Scattered diverticulosis was encountered. No colonic polyps were found. No evidence of focal colitis was found. Retroflexion of the scope demonstrated grade 2 internal hemorrhoids without active bleeding or inflammation. The colon was desufflated. The patient had tolerated the procedure well. Withdrawal time was over 6 minutes. FINDINGS: Aronchick preparation quality scale 3+ (1-5) Internal hemorrhoids, grade 2 External prolapsed hemorrhoids, grade 2 No arteriovenous malformations. No adenomatous polyps. No focal colitis. Sigmoid diverticulosis Removal of colon polyps 2: -Snare polypectomy x 2 transverse colon, 3 to 4 mm adenoma RECOMMENDATIONS: Lower endoscopy 1 year, 2024 Plan - Discharge Summary Discharge Rx Participant: No New Discharge Prescriptions: Continue traMADol HCL [Ultram] 50 mg PO Q6H PRN PRN Reason: Pain Olmesartan/Hydrochlorothiazide [Benicar Hct 40-25 mg Tablet] 1 each PO QAM Atorvastatin [Lipitor] 20 mg PO HS Cholecalciferol [Vitamin D3 (25 Mcg = 1000 Iu)] 25 mcg PO DAILY Aspirin 81 mg PO DAILY amLODIPine BESYLATE 5 mg PO DAILY Albuterol Nebulized [Ventolin Nebulized] 2.5 mg INHALATION DIRECTED PRN PRN Reason: sob Fluticasone/Umeclidin/Vilanter [Trelegy Ellipta 200-62.5-25] 1 puff INHALATION DAILY Discharge Medication List traMADol HCL [Ultram] 50 mg PO Q6H PRN 10/03/14 [History] Olmesartan/Hydrochlorothiazide [Benicar Hct 40-25 mg Tablet] 1 each PO QAM 04/25/19 [History] Atorvastatin [Lipitor] 20 mg PO HS 11/30/20 [History] Cholecalciferol [Vitamin D3 (25 Mcg = 1000 Iu)] 25 mcg PO DAILY 11/30/20 [History] Albuterol Nebulized [Ventolin Nebulized] 2.5 mg INHALATION DIRECTED PRN 01/01/21 [History] Aspirin 81 mg PO DAILY 01/27/22 [History] amLODIPine BESYLATE 5 mg PO DAILY 01/27/22 [History] Fluticasone/Umeclidin/Vilanter [Trelegy Ellipta 200-62.5-25] 1 puff INHALATION DAILY 05/27/23 [History] Follow up Appointment(s)/Referral(s): So Pastor MD [STAFF PHYSICIAN] - As Needed Patient Instructions/Handouts: *Surgery [facility] - (Anesthesia) Discharge Instructions Outpatient Surgery, Colorectal Polyps (GEN), Diverticulosis Diet (GEN), Diverticulosis (DC) Activity/Diet/Wound Care/Special Instructions: Repeat colonoscopy 1 year, 2024 Discharge Disposition: HOME SELF-CARE
[2023-05-28 12:16] VITALS: BP 131/61; PULSE 82; RESP 18
== END 2023-05-28 12:03 | disposition home or self-care (01) ==
LOC: ORWHC2ENDO 09:35
PROVIDERS: ATTEND Surgery Plastic and Reconstructive Surgery
DX: Z12.11 Encounter for screening for malignant neoplasm of colon (principal); D12.3 Benign neoplasm of transverse colon; K62.1 Rectal polyp; K64.4 Residual hemorrhoidal skin tags; K57.30 Diverticulosis of large intestine without perforation or abscess without bleeding; J44.9 Chronic obstructive pulmonary disease, unspecified; I10 Essential (primary) hypertension; M19.90 Unspecified osteoarthritis, unspecified site; E78.5 Hyperlipidemia, unspecified; Z86.73 Personal history of transient ischemic attack (TIA), and cerebral infarction without residual deficits; Z86.711 Personal history of pulmonary embolism; Z90.49 Acquired absence of other specified parts of digestive tract; Z87.891 Personal history of nicotine dependence; Z86.718 Personal history of other venous thrombosis and embolism; Z80.0 Family history of malignant neoplasm of digestive organs; Z82.49 Family history of ischemic heart disease and other diseases of the circulatory system; Z79.899 Other long term (current) drug therapy; Z79.51 Long term (current) use of inhaled steroids; Z79.82 Long term (current) use of aspirin; Z85.038 Personal history of other malignant neoplasm of large intestine
CPT/HCPCS: 88305; 45385; J2001; J2704

== ENCOUNTER → 2023-10-15 | Outpatient (CLI) | payer MEDICARE ==
--- NOTE | 2023-10-15 09:19 | XR ---
EXAMINATION TYPE: XR chest 2V DATE OF EXAM: 10/15/2023 9:05 AM CLINICAL INDICATION: Male, 78 years old with history of R93.89 ABNORMAL FINDINGS ON DX IMAGING OF OTH BODY; [facility] COMPARISON: CT 06/03/2016 TECHNIQUE: XR chest 2V Frontal view of the chest. FINDINGS: Lungs/Pleura: There is no evidence of pleural effusion, focal consolidation, or pneumothorax. Pulmonary vascularity: Unremarkable. Heart/mediastinum: Cardiomediastinal silhouette is unremarkable. Musculoskeletal: No acute osseous pathology. Multiple calcified joint bodies in the right shoulder jesse int with degeneration with joint space narrowing osteophyte formation. The medial aspect of the right first rib has a masslike appearance. This is confirmed on prior CT on 06/03/2016. IMPRESSION: 1. No acute cardiopulmonary disease process. 2. COPD changes. 3. The medial aspect of the right first rib has a masslike appearance. This is confirmed on prior CT on 06/03/2016.
== END | disposition home or self-care (01) ==
LOC: RADXRMAIN 08:44
PROVIDERS: ATTEND Family Medicine
DX: R93.89 Abnormal findings on diagnostic imaging of other specified body structures
CPT/HCPCS: 71046

== ENCOUNTER 2024-06-25 09:08 | Emergency (ER) | payer MEDICARE ==
[2024-06-25 09:14] VITALS: RESP 18; TEMP 97.8
--- NOTE | 2024-06-25 09:45 | ED ---
General Adult HPI - General Chief complaint: Extremity Problem,Nontraumatic Stated complaint: L Foot Swelling Time Seen by Provider: 06/25/24 09:16 Source: patient, RN notes reviewed Mode of arrival: ambulatory Limitations: no limitations - History of Present Illness Initial comments: 79 year old male presents to the ED with complaints of left heel/ankle swelling, redness, and pain. He says that he first started having symptoms about a week ago but wanted to come in since he hasn't seen any improvement. He does report changing his shoes recently. He denies any recent travel or surgeries. Patient denies any known cuts. Patient states that he has had increasing swelling discomfort with ambulation denies any trauma no paresthesias - Related Data Home Medications Medication Instructions Recorded Confirmed traMADol HCL [Ultram] 50 mg PO Q6H PRN 10/03/14 05/27/23 Olmesartan/Hydrochlorothiazide 1 each PO QAM 04/25/19 05/27/23 [Benicar Hct 40-25 mg Tablet] Atorvastatin [Lipitor] 20 mg PO HS 11/30/20 05/27/23 Cholecalciferol [Vitamin D3 (25 25 mcg PO DAILY 11/30/20 05/27/23 Mcg = 1000 Iu)] Albuterol Nebulized [Ventolin 2.5 mg INHALATION DIRECTED PRN 01/01/21 05/27/23 Nebulized] Aspirin 81 mg PO DAILY 01/27/22 05/27/23 amLODIPine BESYLATE 5 mg PO DAILY 01/27/22 05/27/23 Fluticasone/Umeclidin/Vilanter 1 puff INHALATION DAILY 05/27/23 05/27/23 [Trelegy Ellipta 200-62.5-25] Previous Rx's Medication Instructions Recorded Cephalexin [Keflex] 500 mg PO Q6HR #40 cap 06/25/24 Allergies Allergy/AdvReac Type Severity Reaction Status Date / Time No Known Allergies Allergy Verified 06/25/24 09:14 Review of Systems ROS Statement: Those systems with pertinent positive or pertinent negative responses have been documented in the HPI. ROS Other: All systems not noted in ROS Statement are negative. Past Medical History Past Medical History: Cancer, COPD, Deep Vein Thrombosis (DVT), Hearing Disorder / Deafness, Hyperlipidemia, Hypertension, Osteoarthritis (OA), Pneumonia, Pulmonary Embolus (PE) Additional Past Medical History / Comment(s): hx POLYPS. anemia, COLON CANCER History of Any Multi-Drug Resistant Organisms: None Reported Past Surgical History: Appendectomy, Bowel Resection, Cholecystectomy, Joint Replacement, Orthopedic Surgery Additional Past Surgical History / Comment(s): COLONOSCOPY W/POLYPECTOMY,BONE TAKEN FROM RT HIP AND INSERTED INTO RT ANKLE, BOWEL RESECTION R/T COLON CANCER, RT TKA, Past Anesthesia/Blood Transfusion Reactions: No Reported Reaction Additional Past Anesthesia/Blood Transfusion Reaction / Comment(s): had ruptured appendix in 70's-"almost lost him" per spouse, unsure if due to anesthesia or the ruptured appy. Past Psychological History: No Psychological Hx Reported Smoking Status: Former smoker - Past Family History Son(s) Family Medical History: Deep Vein Thrombosis (DVT) Brother(s) Family Medical History: Cancer Daughter(s) Family Medical History: Cancer Father Family Medical History: Cancer Additional Family Medical History / Comment(s): HAD COLON CANCER. Mother Family Medical History: Hypertension, Rheumatoid Arthritis (RA) Additional Family Medical History / Comment(s): STILL ALIVE LIVES AT [facility] [place] General Exam Limitations: no limitations General appearance: alert, in no apparent distress Head exam: Present: atraumatic, normocephalic, normal inspection Eye exam: Present: normal appearance, PERRL, EOMI. Absent: scleral icterus, conjunctival injection, periorbital swelling Respiratory exam: Present: normal lung sounds bilaterally. Absent: respiratory distress, wheezes, rales, rhonchi, stridor Cardiovascular Exam: Present: regular rate, normal rhythm, normal heart sounds. Absent: systolic murmur, diastolic murmur, rubs, gallop, clicks Extremities exam: Present: full ROM, tenderness, normal capillary refill. Absent: normal inspection (L heel/ankle--posterior erythema with moderate malleolar swelling, neurovascularly intact with 2+ pulses ), pedal edema, joint swelling, calf tenderness Neurological exam: Present: alert, oriented X3, reflexes normal. Absent: motor sensory deficit Skin exam: Present: warm, dry Course Vital Signs 06/25/24 06/25/24 09:09 12:14 Temperature 97.8 F Pulse Rate 76 78 Respiratory 18 18 Rate Blood Pressure 121/81 144/89 O2 Sat by Pulse 96 99 Oximetry Medical Decision Making - Medical Decision Making Was pt. sent in by a medical professional or institution ([employer] Buitrago, DIRECTOR OF STUDENT AID, urgent care, hospital, or fci...) When possible be specific @ -No Did you speak to anyone other than the patient for history (EMS, parent, family, police, friend...)? What history was obtained from this source @ -No Did you review nursing and triage notes (agree or disagree)? Why? @ -I reviewed and agree with nursing and triage notes Were old charts reviewed (outside hosp., previous admission, EMS record, old EK G, old radiological studies, urgent care reports/EKG's, fci records)? Report findings @ -No old charts were reviewed Differential Diagnosis (chest pain, altered mental status, abdominal pain women, abdominal pain men, vaginal bleeding, weakness, fever, dyspnea, syncope, headache, dizziness, GI bleed, back pain, seizure, CVA, palpatations, mental health, musculoskeletal)? @ -Cellulitis, gout, ankle sprain, septic arthritis, reactive arthritis, EKG interpreted by me (3pts min.). @ -None X-rays interpreted by me (1pt min.). @ -X-ray r left ankle showing soft tissue swelling no acute fracture CT interpreted by me (1pt min.). @ -None done U/S interpreted by me (1pt. min.). @ -None done What testing was considered but not performed or refused? (CT, X-rays, U/S, labs)? Why? @ -None What meds were considered but not given or refused? Why? @ -None Did you discuss the management of the patient with other professionals (professionals i.e. [employer] Buitrago, DIRECTOR OF STUDENT AID, lab, RT, psych nurse, clinical social work aide, investment executive, teacher, public health officer, case operator)? Give summary @ -No Was smoking cessation discussed for >3mins.? @ -No Was critical care preformed (if so, how long)? @ -No Were there social determinants of health that impacted care today? How? (Homelessness, low income, unemployed, alcoholism, drug addiction, transportation, low edu. Level, literacy, decrease access to med. care, care home, rehab)? @ -No Was there de-escalation of care discussed even if they declined (Discuss DNR or withdrawal of care, Hospice)? DNR status @ -No What co-morbidities impacted this encounter? (DM, HTN, Smoking, COPD, CAD, Cancer, CVA, ARF, Chemo, Hep., AIDS, mental health diagnosis, sleep apnea, morbid obesity)? @ -None Was patient admitted / discharged? Hospital course, mention meds given and route, prescriptions, significant lab abnormalities, going to OR and other pertinent info. @ -Discharge patient was treated for acute cellulitis laboratory studies unremarkable x-rays unremarkable patient follow-up PCP return parameters jeanne. Undiagnosed new problem with uncertain prognosis? @ -No Drug Therapy requiring intensive monitoring for toxicity (Heparin, Nitro, Insulin, Cardizem)? @ -No Were any procedures done? @ -No Diagnosis/symptom? @ -[Cellulitis ankle swelling Acute, or Chronic, or Acute on Chronic? @ -Acute Uncomplicated (without systemic symptoms) or Complicated (systemic symptoms)? @ -Uncomplicated Side effects of treatment? @ -No Exacerbation, Progression, or Severe Exacerbation? @ -No Poses a threat to life or bodily function? How? (Chest pain, [place], [place], pneumonia, PE, COPD, DKA, ARF, appy, cholecystitis, CVA, Diverticulitis, Homicidal, Suicidal, threat to staff... and all critical care pts) @ -No - Lab Data Result diagrams: 06/25/24 10:12 06/25/24 10:12 Lab Results 06/25/24 06/25/24 Range/Units 10:12 10:12 WBC 7.43 (4.50-10.00) 10*3/uL RBC 4.34 L (4.40-5.60) 10*6/uL Hgb 13.3 (13.0-17.0) g/dL Hct 39.1 L (39.6-50.0) % MCV 90.1 (80.0-97.0) fL MCH 30.6 (27.0-32.0) pg MCHC 34.0 (32.0-37.0) g/dL Plt Count 191 (140-440) 10*3/uL MPV 10.6 (9.5-12.2) fL Immature Gran % (Auto) 0.8 % Neutrophils % 70.6 % Lymphocytes % 13.3 % Monocytes % 10.9 % Eosinophils % 3.6 % Basophils % 0.8 % Immature Gran # 0.06 H (0.00-0.04) 10*3/uL Neutrophils # 5.24 (1.80-7.70) 10*3/uL Lymphocytes # 0.99 (0.90-5.00) 10*3/uL Monocytes # 0.81 (0.20-1.00) 10*3/uL Eosinophils # 0.27 (0.04-0.35) 10*3/uL Basophils # 0.06 (0.00-0.10) 10*3/uL Sodium 134 L (137-145) mmol/L Potassium 4.8 (3.5-5.1) mmol/L Chloride 101 (98-107) mmol/L Carbon Dioxide 26 (22-30) mmol/L Anion Gap 7 mmol/L BUN 30 H (9-20) mg/dL Creatinine 1.21 (0.66-1.25) mg/dL Est GFR (CKD-EPI)AfAm 66 (>60 ml/min/1.73 sqM) Est GFR (CKD-EPI)NonAf 57 (>60 ml/min/1.73 sqM) Glucose 90 (74-99) mg/dL Uric Acid 7.4 (3.5-8.5) mg/dL Calcium 9.5 (8.4-10.2) mg/dL Total Bilirubin 1.0 (0.2-1.3) mg/dL AST 32 (17-59) U/L ALT 22 (4-49) U/L Alkaline Phosphatase 45 (38-126) U/L C-Reactive Protein 4.8 H (<1.0) mg/dL Total Protein 6.4 (6.3-8.2) g/dL Albumin 3.7 (3.5-5.0) g/dL Disposition Clinical Impression: Cellulitis of foot, Ankle swelling Disposition: HOME SELF-CARE Condition: Stable Instructions (If sedation given, give patient instructions): Cellulitis (ED) Additional Instructions: Please return to the Emergency Department if symptoms worsen or any other concerns. Prescriptions: Cephalexin [Keflex] 500 mg PO Q6HR #40 cap Is patient prescribed a controlled substance at d/c from ED?: No Referrals: Jigar Gilman DO [Primary Care Provider] - 1-2 days Time of Disposition: 11:51
[2024-06-25] MEDS: KETOROLAC 15 MG/ML 1 ML VIAL IVP STA (10:09)
[2024-06-25] MEDS: DEXAMETHASONE SOD PHOSPHATE 10 MG/ML 1 ML VIAL IVP STA (10:09)
[2024-06-25 10:17] LABS: Basophils # (A) 0.06 10*3/uL (0.00-0.10); Basophils % (A) 0.8 %; Eosinophils # (A) 0.27 10*3/uL (0.04-0.35); Eosinophils % (A) 3.6 %; HCT 39.1 % (39.6-50.0); HGB 13.3 g/dL (13.0-17.0); Lymphocytes # (A) 0.99 10*3/uL (0.90-5.00); Lymphocytes % (A) 13.3 %; MCH 30.6 pg (27.0-32.0); MCV 90.1 fL (80.0-97.0); Mean Platelet Volume 10.6 fL (9.5-12.2); Monocytes # (A) 0.81 10*3/uL (0.20-1.00); Monocytes % (A) 10.9 %; Neutrophils # (A) 5.24 10*3/uL (1.80-7.70); Neutrophils % (A) 70.6 %; Platelet Count 191 10*3/uL (140-440); RBC 4.34 10*6/uL (4.40-5.60); RDW 12.6 % (11.5-14.5); WBC 7.43 10*3/uL (4.50-10.00)
--- NOTE | 2024-06-25 10:43 | XR ---
EXAMINATION TYPE: XR ankle complete LT DATE OF EXAM: 06/25/2024 10:09 AM COMPARISON: None CLINICAL INDICATION: Male, 79 years old with history of pain; PHH, pain TECHNIQUE: XR ankle complete LT; frontal, lateral and oblique projections. FINDINGS: There is no evidence of acute osseous pathology. No evidence of subluxation or dislocation. Kager's fat pad is intact. Mild soft tissue swelling around the ankle. No radiopaque foreign bodies are ident ified. Calcaneal Achilles enthesophyte. Atherosclerosis of the arterial vasculature. IMPRESSION: 1. No evidence of acute fracture. 2. Subcutaneous swelling around the ankle likely secondary to underlying soft tissue injury versus oc cult fracture consider CT imaging as clinically indicated. [facility], , 06/25/2024 10:40 AM
[2024-06-25 10:51] LABS: ALT 22 U/L (4-49); African American GFR (CKD) 66 (>60 ml/min/1.73 sqM); Anion Gap 7 mmol/L; Blood Urea Nitrogen 30 mg/dL (9-20); C Reactive Protein 4.8 mg/dL (<1.0); Calcium 9.5 mg/dL (8.4-10.2); Carbon Dioxide 26 mmol/L (22-30); Chloride 101 mmol/L (98-107); Glucose 90 mg/dL (74-99); Non-African American GFR(CKD) 57 (>60 ml/min/1.73 sqM); Sodium 134 mmol/L (137-145); Uric Acid 7.4 mg/dL (3.5-8.5)
[2024-06-25 11:41] LABS: Albumin 3.7 g/dL (3.5-5.0); Potassium 4.8 mmol/L (3.5-5.1); Total Protein 6.4 g/dL (6.3-8.2)
[2024-06-25 11:42] LABS: AST 32 U/L (17-59); Alkaline Phosphatase 45 U/L (38-126)
[2024-06-25 12:15] VITALS: BP 144/89; PULSE 78
== END 2024-06-25 12:15 | disposition home or self-care (01) ==
LOC: EC 09:08
DX: M25.472 Effusion, left ankle (principal); L03.116 Cellulitis of left lower limb; Z87.891 Personal history of nicotine dependence
CPT/HCPCS: 36415; 80053; 84550; 85025; 86140; 73610; 99283; 96374; 96375; J1100; J1885

== ENCOUNTER 2024-07-28 09:45 | Emergency (ER) | payer MEDICARE ==
[2024-07-28] MEDS: BACITRACIN OINT 1 EACH PACKET TOPICAL ONE (10:22)
--- NOTE | 2024-07-28 10:51 | ED ---
Skin/Abscess/FB HPI - General Chief complaint: Skin/Abscess/Foreign Body Stated complaint: R arm wound Time Seen by Provider: 07/28/24 10:12 Source: patient, RN notes reviewed Mode of arrival: ambulatory Limitations: no limitations - History of Present Illness Initial comments: This is a 79-year-old male who presents to the emergency department for skin tear to his right arm. States that he tripped and fell 3 to 4 days ago and his right arm hit a dresser. He developed a skin tear from the fall and states that whenever he goes to remove the bandage, his skin rips off with it, reinjuring this area. This is making it very difficult to heal. Tetanus vaccine is up-to-date. Unsure if he hit his head or not, but states that his head does not hurt and he is not concerned about it, he is only concerned about the arm. He is also unsure if he is taking any blood thinners. - Related Data Home Medications Medication Instructions Recorded Confirmed traMADol HCL [Ultram] 50 mg PO Q6H PRN 10/03/14 05/27/23 Olmesartan/Hydrochlorothiazide 1 each PO QAM 04/25/19 05/27/23 [Benicar Hct 40-25 mg Tablet] Atorvastatin [Lipitor] 20 mg PO HS 11/30/20 05/27/23 Cholecalciferol [Vitamin D3 (25 25 mcg PO DAILY 11/30/20 05/27/23 Mcg = 1000 Iu)] Albuterol Nebulized [Ventolin 2.5 mg INHALATION DIRECTED PRN 01/01/21 05/27/23 Nebulized] Aspirin 81 mg PO DAILY 01/27/22 05/27/23 amLODIPine BESYLATE 5 mg PO DAILY 01/27/22 05/27/23 Fluticasone/Umeclidin/Vilanter 1 puff INHALATION DAILY 05/27/23 05/27/23 [Trelegy Ellipta 200-62.5-25] Previous Rx's Medication Instructions Recorded Cephalexin [Keflex] 500 mg PO Q6HR #40 cap 06/25/24 Allergies Allergy/AdvReac Type Severity Reaction Status Date / Time No Known Allergies Allergy Verified 07/28/24 10:10 Review of Systems ROS Statement: Those systems with pertinent positive or pertinent negative responses have been documented in the HPI. ROS Other: All systems not noted in ROS Statement are negative. Past Medical History Past Medical History: Cancer, COPD, Deep Vein Thrombosis (DVT), Hearing Disorder / Deafness, Hyperlipidemia, Hypertension, Osteoarthritis (OA), Pneumonia, Pulmonary Embolus (PE) Additional Past Medical History / Comment(s): hx POLYPS. anemia, COLON CANCER History of Any Multi-Drug Resistant Organisms: None Reported Past Surgical History: Appendectomy, Bowel Resection, Cholecystectomy, Joint Replacement, Orthopedic Surgery Additional Past Surgical History / Comment(s): COLONOSCOPY W/POLYPECTOMY,BONE TAKEN FROM RT HIP AND INSERTED INTO RT ANKLE, BOWEL RESECTION R/T COLON CANCER, RT TKA, Past Anesthesia/Blood Transfusion Reactions: No Reported Reaction Additional Past Anesthesia/Blood Transfusion Reaction / Comment(s): had ruptured appendix in 70's-"almost lost him" per spouse, unsure if due to anesthesia or the ruptured appy. Past Psychological History: No Psychological Hx Reported Smoking Status: Former smoker Past Alcohol Use History: Occasional Past Drug Use History: None Reported - Past Family History Son(s) Family Medical History: Deep Vein Thrombosis (DVT) Brother(s) Family Medical History: Cancer Daughter(s) Family Medical History: Cancer Father Family Medical History: Cancer Additional Family Medical History / Comment(s): HAD COLON CANCER. Mother Family Medical History: Hypertension, Rheumatoid Arthritis (RA) Additional Family Medical History / Comment(s): STILL ALIVE LIVES AT [facility] General Exam Limitations: no limitations General appearance: alert, in no apparent distress Head exam: Present: atraumatic, normocephalic, normal inspection Respiratory exam: Present: normal lung sounds bilaterally. Absent: respiratory distress, wheezes, rales, rhonchi, stridor Cardiovascular Exam: Present: regular rate, normal rhythm Extremities exam: Present: other (Skin tear to the right forearm. Minor active bleeding. No surrounding erythema, tenderness, or warmth. Full range of motion. 2+ radial pulses.) Neurological exam: Present: alert, oriented X3, CN II-XII intact Psychiatric exam: Present: normal affect, normal mood Course Vital Signs 07/28/24 07/28/24 10:05 10:58 Temperature 97.8 F 97.9 F Pulse Rate 81 66 Respiratory 18 20 Rate Blood Pressure 133/82 130/84 O2 Sat by Pulse 95 97 Oximetry Medical Decision Making - Medical Decision Making This is a 79-year-old male who presents to the emergency department for a skin tear to the right forearm. Was pt. sent in by a medical professional or institution? @ -No Did you speak to anyone other than the patient for history? @ -No Did you review nursing and triage notes? @ -Yes, and I agree, it is accurate with regards to the patient's symptoms. Were old charts reviewed? @ -No Differential Diagnosis? @ -Laceration, abrasion, burn, cellulitis, skin tear, this is not meant to be an all-inclusive list. EKG interpreted by me (3pts min.)? @ -Not obtained X-rays interpreted by me (1pt min.)? @ -Not obtained CT interpreted by me (1pt min.)? @ -Not obtained U/S interpreted by me (1pt. min.)? @ -Not obtained What testing was considered but not performed? (CT, X-rays, U/S, labs)? Why? @ -None What meds were considered but not given? Why? @ -None Did you discuss the management of the patient with other professionals? @ -No Did you reconcile home meds? @ -No Was smoking cessation discussed for >3mins.? @ -No Was critical care preformed (if so, how long)? @ -No Were there social determinants of health that impacted care today? How? (Homelessness, low income, unemployed, alcoholism, drug addiction, transportation, low edu. Level, literacy, decrease access to med. care, nursing home, rehab)? @ -No Was there de-escalation of care discussed even if they declined? (Discuss DNR or withdrawal of care, Hospice)? @ -No What co-morbidities impacted this encounter? (DM, HTN, Smoking, COPD, CAD, Cancer, CVA, Hep., AIDS, mental health diagnosis, sleep apnea, morbid obesity)? @ -Osteoarthritis Was patient admitted / discharged? @ -Discharged. The skin tear on his arm was cleansed and bacitracin ointment was applied. Steri-Strips were used to tack the skin back down. Nonadherent Vaseline gauze was then applied on top and the wound was bandaged. Tetanus vaccine is already up-to-date. Patient denies any definitive or known injuries elsewhere and otherwise has no complaints. Advised he follow back up with his PCP for reevaluation. Patient discharged home in stable condition. Case discussed with ED attending Dr. Aldrich. Return precautions reviewed in depth, the patient is instructed to return to the emergency department with any new, worsening, or concerning symptoms. Patient verbalized understanding. Undiagnosed new problem with uncertain prognosis? @ -None Drug Therapy requiring intensive monitoring for toxicity (Heparin, Nitro, Insulin, Cardizem)? @ -None Were any procedures done? @ -None Diagnosis/symptom? @ -Fall, skin tear Acute, or Chronic, or Acute on Chronic? @ -Acute Uncomplicated (without systemic symptoms) or Complicated (systemic symptoms)? @ -Uncomplicated Side effects of treatment? @ -None Exacerbation, Progression, or Severe Exacerbation] @ -Not applicable Poses a threat to life or bodily function? @ -No Disposition Clinical Impression: Fall, Skin tear Disposition: HOME SELF-CARE Instructions (If sedation given, give patient instructions): Skin Tear (ED) Additional Instructions: Return to the emergency department with any new, worsening, or concerning symptoms. Follow up with your primary care provider in 1-2 days. Is patient prescribed a controlled substance at d/c from ED?: No Referrals: Jigar Gilman DO [Primary Care Provider] - 1-2 days Time of Disposition: 10:51
[2024-07-28 11:09] VITALS: BP 130/84; PULSE 66; RESP 20; TEMP 97.9
== END 2024-07-28 10:59 | disposition home or self-care (01) ==
LOC: EC 09:45
DX: S51.812A Laceration without foreign body of left forearm, initial encounter (principal); M19.90 Unspecified osteoarthritis, unspecified site; Z87.891 Personal history of nicotine dependence; W01.0XXA Fall on same level from slipping, tripping and stumbling without subsequent striking against object, initial encounter
CPT/HCPCS: 99282

== ENCOUNTER 2024-08-17 09:53 | Day surgery (SDC) | payer MEDICARE ==
[2024-08-16 10:51] VITALS: BMI 50.2
--- NOTE | 2024-08-17 09:10 | P.GSHP ---
History of Present Illness H&P Date: 08/17/24 CHIEF COMPLAINT: Colon screen HISTORY OF PRESENT ILLNESS: The patient is a 79-year-old male who presents for colon screen. Lower endoscopy was offered for further evaluation and management. PAST MEDICAL HISTORY: Please see list. PAST SURGICAL HISTORY: Please see list. MEDICATIONS: Please see list. ALLERGIES: Please see list. SOCIAL HISTORY: No illicit drug use FAMILY HISTORY: No reports of Crohn disease or ulcerative colitis. REVIEW OF ORGAN SYSTEMS: CONSTITUTIONAL: No reports of fevers or chills. PHYSICAL EXAM: VITAL SIGNS: Stable GENERAL: Well-developed pleasant in no acute distress. HEENT: No scleral icterus. Extraocular movements grossly intact. Moist buccal mucosa. NECK: Supple without lymphadenopathy. CHEST: Unlabored respirations. Equal bilateral excursions. CARDIOVASCULAR: Regular rate and rhythm. Distal 2+ pulses. ABDOMEN: Soft, nontender, nondistended. MUSCULOSKELETAL: No clubbing, cyanosis, or edema. ASSESSMENT: 1. Colon screen. PLAN: 1. Recommend proceeding with a lower endoscopy Past Medical History Past Medical History: Cancer, COPD, Deep Vein Thrombosis (DVT), Hearing Disorder / Deafness, Hyperlipidemia, Hypertension, Osteoarthritis (OA), Pneumonia, Pulmonary Embolus (PE) Additional Past Medical History / Comment(s): hx POLYPS. anemia, COLON CANCER History of Any Multi-Drug Resistant Organisms: None Reported Past Surgical History: Appendectomy, Bowel Resection, Cholecystectomy, Joint Replacement, Orthopedic Surgery Additional Past Surgical History / Comment(s): COLONOSCOPY W/POLYPECTOMY,BONE TAKEN FROM RT HIP AND INSERTED INTO RT ANKLE, BOWEL RESECTION R/T COLON CANCER, RT TKA, Past Anesthesia/Blood Transfusion Reactions: No Reported Reaction Additional Past Anesthesia/Blood Transfusion Reaction / Comment(s): had ruptured appendix in 70's-"almost lost him" per spouse, unsure if due to anesthesia or the ruptured appy. Smoking Status: Former smoker - Past Family History Son(s) Family Medical History: Deep Vein Thrombosis (DVT) Brother(s) Family Medical History: Cancer Daughter(s) Family Medical History: Cancer Father Family Medical History: Cancer Additional Family Medical History / Comment(s): HAD COLON CANCER. Mother Family Medical History: Hypertension, Rheumatoid Arthritis (RA) Additional Family Medical History / Comment(s): STILL ALIVE LIVES AT [facility] Medications and Allergies Home Medications Medication Instructions Recorded Confirmed Type traMADol HCL [Ultram] 50 mg PO Q6H PRN 10/03/14 08/16/24 History Olmesartan/Hydrochlorothiazide 1 each PO QAM 04/25/19 08/16/24 History [Benicar Hct 40-25 mg Tablet] Atorvastatin [Lipitor] 20 mg PO HS 11/30/20 08/16/24 History Cholecalciferol [Vitamin D3 (25 25 mcg PO DAILY 11/30/20 08/16/24 History Mcg = 1000 Iu)] Albuterol Nebulized [Ventolin 2.5 mg INHALATION DIRECTED PRN 01/01/21 08/16/24 History Nebulized] amLODIPine BESYLATE 5 mg PO DAILY 01/27/22 08/16/24 History Fluticasone/Umeclidin/Vilanter 1 puff INHALATION DAILY 05/27/23 08/16/24 History [Trelegy Ellipta 200-62.5-25] Clopidogrel [Plavix] 75 mg PO DAILY 08/16/24 08/16/24 History Allergies Allergy/AdvReac Type Severity Reaction Status Date / Time No Known Allergies Allergy Verified 08/16/24 10:30
[2024-08-17 10:21] VITALS: TEMP 96.7
[2024-08-17] MEDS: IV FLUID CONTINUATION 1,000 ML IV ONE ×2 (10:27→11:06)
[2024-08-17] MEDS: LACTATED RINGERS 1,000 ML IV SCH (10:27)
[2024-08-17] MEDS ORDERED: PROPOFOL 10 MG/ML 20 ML VIAL IV ONE (11:08)
[2024-08-17 11:54] VITALS: BP 116/80; PULSE 90; RESP 18
--- NOTE | 2024-08-17 12:29 | P.PCN ---
Date of Procedure: 08/17/24 Description of Procedure: PREOPERATIVE DIAGNOSIS: Personal history of colon cancer POSTOPERATIVE DIAGNOSIS: Tubular adenoma ileocolic anastomosis Tubular adenoma transverse colon Sigmoid diverticulosis Internal hemorrhoids, grade 2 OPERATION: Colonoscopy to the ileocolic anastomosis Colonoscopy with hot snare polypectomy SURGEON: So Pastor MD. ANESTHESIA: MAC. INDICATIONS: The patient is an 79-year-old male who presents personal history of colon cancer status post resection 2 to 3 years ago. He presents for colon cancer surveillance benefits and risks were described and informed consent was obtained. DESCRIPTION OF PROCEDURE: The patient had undergone Suprep. The patient had been brought into the operating room and laid in the left lateral decubitus position. After adequate intravenous sedation, the rectum was examined with 2% lidocaine jelly. The prostate was unremarkable. External hemorrhoids were encountered. The rectal tone was within normal limits. No lesions were palpated in the rectal vault. An Olympus colonoscope was advanced to the ileocolic anastomosis. The prep was fair. Sigmoid diverticulosis was encountered. Colonic polyps were found and removed. No evidence of focal colitis was found. Retroflexion of the scope demonstrated grade 2 internal hemorrhoids without active bleeding or inflammation. The colon was desufflated. The patient had tolerated the procedure well. Withdrawal time was over 6 minutes. FINDINGS: Aronchick preparation quality scale 2+ (1-5) Internal hemorrhoids, grade 2 No external external hemorrhoids. No arteriovenous malformations. Sigmoid diverticulosis Removal of 2 polyps: - Snare polypectomy ileocolic anastomosis 5 mm tubulovillous adenoma - Snare polypectomy transverse colon, 7 mm tubulovillous adenoma No focal colitis. RECOMMENDATIONS: Repeat colonoscopy yearly for 4 more year through 2028 due to colon cancer diag nosis and recent resection. Next colonoscopy due August Plan - Discharge Summary Discharge Rx Participant: Yes New Discharge Prescriptions: Continue traMADol HCL [Ultram] 50 mg PO Q6H PRN PRN Reason: Pain Olmesartan/Hydrochlorothiazide [Benicar Hct 40-25 mg Tablet] 1 each PO QAM Atorvastatin [Lipitor] 20 mg PO HS Cholecalciferol [Vitamin D3 (25 Mcg = 1000 Iu)] 25 mcg PO DAILY amLODIPine BESYLATE 5 mg PO DAILY Albuterol Nebulized [Ventolin Nebulized] 2.5 mg INHALATION DIRECTED PRN PRN Reason: sob Fluticasone/Umeclidin/Vilanter [Trelegy Ellipta 200-62.5-25] 1 puff INHALATION DAILY Clopidogrel [Plavix] 75 mg PO DAILY Discharge Medication List traMADol HCL [Ultram] 50 mg PO Q6H PRN 10/03/14 [History] Olmesartan/Hydrochlorothiazide [Benicar Hct 40-25 mg Tablet] 1 each PO QAM 04/25/19 [History] Atorvastatin [Lipitor] 20 mg PO HS 11/30/20 [History] Cholecalciferol [Vitamin D3 (25 Mcg = 1000 Iu)] 25 mcg PO DAILY 11/30/20 [History] Albuterol Nebulized [Ventolin Nebulized] 2.5 mg INHALATION DIRECTED PRN 01/01/21 [History] amLODIPine BESYLATE 5 mg PO DAILY 01/27/22 [History] Fluticasone/Umeclidin/Vilanter [Trelegy Ellipta 200-62.5-25] 1 puff INHALATION DAILY 05/27/23 [History] Clopidogrel [Plavix] 75 mg PO DAILY 08/16/24 [History] Follow up Appointment(s)/Referral(s): So Pastor MD [STAFF PHYSICIAN] - As Needed Patient Instructions/Handouts: *Surgery [facility] - (Anesthesia) Discharge Instructio ns Outpatient Surgery, Diverticulosis (DC), Colorectal Polyps (GEN), Diverticulosis Diet (GEN), Colonoscopy (DC) Activity/Diet/Wound Care/Special Instructions: Repeat colonoscopy 1 year, 2025. Resume Plavix tomorrow 08/18/2024 Discharge Disposition: HOME SELF-CARE
== END 2024-08-17 12:37 | disposition home or self-care (01) ==
LOC: ORWHC2ENDO 09:53
PROVIDERS: ATTEND Surgery Plastic and Reconstructive Surgery
DX: Z12.11 Encounter for screening for malignant neoplasm of colon (principal); D12.3 Benign neoplasm of transverse colon; K57.30 Diverticulosis of large intestine without perforation or abscess without bleeding; K64.1 Second degree hemorrhoids; M19.90 Unspecified osteoarthritis, unspecified site; E78.5 Hyperlipidemia, unspecified; I10 Essential (primary) hypertension; J44.9 Chronic obstructive pulmonary disease, unspecified; Z79.02 Long term (current) use of antithrombotics/antiplatelets; Z85.038 Personal history of other malignant neoplasm of large intestine; Z79.899 Other long term (current) drug therapy; Z80.0 Family history of malignant neoplasm of digestive organs; Z86.711 Personal history of pulmonary embolism; Z86.718 Personal history of other venous thrombosis and embolism; Z87.891 Personal history of nicotine dependence; Z90.49 Acquired absence of other specified parts of digestive tract
CPT/HCPCS: 88305; 45385; J2704

== ENCOUNTER → 2024-08-26 | Outpatient (CLI) | payer MEDICARE ==
--- NOTE | 2024-08-26 18:18 | CA ---
Transthoracic Echo Report Name: Manny Salmeron Age: 79 Gender: M : 1945 Exam Date: 08/26/2024 13:08 Exam Location: [facility] Ht (in): 71 Wt (lb): 355 Ordering Physician: Jigar Gilman DO Attending/Referring Phys: Studio Technician Video Operator Laura Tamayo RDCS Procedure CPT: Indications: G45.9 TRANSIENT CEREBRAL ISCHEMIC ATTACK, UNSPECIF Cardiac Hx: Technical Quality: Fair Contrast 1: Total Dose (mL): Contrast 2: Total Dose (mL): MEASUREMENTS (Male / Female) Normal Values 2D ECHO LV Diastolic Diameter PLAX 4.4 cm 4.2 - 5.9 / 3.9 - 5.3 cm LV Systolic Diameter PLAX 3.5 cm IVS Diastolic Thickness 1.6 cm 0.6 - 1.0 / 0.6 - 0.9 cm LVPW Diastolic Thickness 1.6 cm 0.6 - 1.0 / 0.6 - 0.9 cm LV Relative Wall Thickness 0.7 RV Internal Dim ED PLAX 3.0 cm LA Systolic Diameter LX 3.0 cm 3.0 - 4.0 / 2.7 - 3.8 cm LV Diastolic Volume MOD BP 80.9 cm??? 67 - 155 / 56 - 104 cm??? LV Systolic Volume MOD BP 41.1 cm??? 22 - 58 / 19 - 49 cm??? LV Ejection Fraction MOD BP 49.2 % >= 55 % LV Cardiac Index MOD BP 1116.7 cm???/min???m??? LV Diastolic Volume MOD 4C 87.9 cm??? LV Systolic Volume MOD 4C 34.9 cm??? LV Ejection Fraction MOD 4C 60.3 % LV Cardiac Index MOD 4C 1487.2 cm???/min???m??? LV Diastolic Length 4C 8.5 cm LV Systolic Length 4C 6.6 cm LV Diastolic Volume MOD 2C 73.0 cm??? LV Systolic Volume MOD 2C 46.6 cm??? LV Ejection Fraction MOD 2C 36.2 % LV Cardiac Index MOD 2C 740.0 cm???/min???m??? LV Diastolic Length 2C 8.3 cm LV Systolic Length 2C 7.0 cm M-MODE Aortic Root Diameter MM 4.1 cm LA Systolic Diameter MM 3.7 cm LA Ao Ratio MM 0.9 AV Cusp Separation MM 2.1 cm DOPPLER Mitral E Point Velocity 43.2 cm/s Mitral A Point Velocity 83.2 cm/s Mitral E to A Ratio 0.5 MV Deceleration Time 227.7 ms MV E' Velocity 6.9 cm/s Mitral E to MV E' Ratio 6.2 TR Peak Velocity 236.8 cm/s TR Peak Gradient 22.4 mmHg Right Atrial Pressure 15.0 mmHg Pulmonary Artery Systolic Pressu 37.4 mmHg Right Ventricular Systolic Press 37.4 mmHg FINDINGS Left Ventricle Left ventricular ejection fraction is estimated at 45-50 %. Left ventricular cavity size normal. Moderately increased septal wall thickness. Mildly decreased left ventricular ejection fraction. Right Ventricle Mild right ventricular dilatation. Mild pulmonary hypertension. Right Atrium Normal right atrial size. Left Atrium Normal left atrial size. Mitral Valve Structurally normal mitral valve. No mitral stenosis. Mild mitral regurgitation. Aortic Valve Trileaflet aortic valve. No aortic valve stenosis or regurgitation. Tricuspid Valve No tricuspid stenosis. Trace tricuspid regurgitation. Pulmonic Valve Pulmonic valve not well visualized. No pulmonic regurgitation. No pulmonic stenosis. Pericardium Normal pericardium. No pericardial or pleural effusion. Aorta Mildly dilated aortic annulus. CONCLUSIONS Reason: TIA Increased LV mass with left ventricular ejection fraction of about 50%, low normal Mild RV enlargement Dilated IVC Previewed by: Dr. Raj Burroughs MD (Electronically Signed) Final Date: 26 August 2024 18:17
== END | disposition home or self-care (01) ==
LOC: RADECHMAIN 12:48
PROVIDERS: ATTEND Family Medicine
DX: I07.1 Rheumatic tricuspid insufficiency (principal); G45.9 Transient cerebral ischemic attack, unspecified
CPT/HCPCS: 93270; 93306